=== PATIENT | male | born 1945 | race Caucasian/White ===

== ENCOUNTER 2017-11-09 10:30 | Outpatient (CLI) | payer MEDICARE, OTHER ==
[~2017-11-09] VITALS: Ht 177.8 cm; Wt 104.3 kg
[~2017-11-09 10:30] MED LIST: AMLO10TA2 PO; ASPI-586 PO; BNZ40T PO; CYAN250014 PO; DOXA4TAB2 PO; FERR325T18 PO; GLIM1TAB PO; IRBE1TAB43 PO; LEVO75TA6 PO; LEVOTHYROXINE PO; METF1000 PO; METO-395 PO; MULT-974 PO; MULTIVITAMIN PO; NIAC500T24 PO; OMEG-160 PO; PIOG30TA26 PO; SIMV10TA3 PO
== END 2017-11-09 11:18 ==
LOC: PREOP 10:30
PROVIDERS: ATTEND Surgery
DX: Z01.818 Encounter for other preprocedural examination (principal); D50.9 Iron deficiency anemia, unspecified

== ENCOUNTER 2017-11-11 07:29 | Day surgery (SDC) | payer MEDICARE, OTHER ==
[~2017-11-11] VITALS: Ht 177.8 cm; Wt 104.3 kg
[2017-11-11 07:40] VITALS: BP 120/64
[2017-11-11] MEDS ORDERED: NS IV 500 ML 500 ML IV PRN (07:43)
[2017-11-11] MEDS ORDERED: NS IV 500 ML 500 ML ONE (07:52)
[2017-11-11] MEDS ORDERED: fentaNYL INJECTION 100 MCG/2 ML AMP ONE (08:47)
[2017-11-11] MEDS ORDERED: MIDAZOLAM 2 MG/2 ML (VERSED) VIAL ONE ×3 (08:47)
[2017-11-11] MEDS: MIDAZOLAM 2 MG/2 ML (VERSED) VIAL IVP PRN ×3 (08:55→09:02)
[2017-11-11] MEDS: fentaNYL INJECTION 100 MCG/2 ML AMP IVP PRN ×2 (08:56→08:59)
--- NOTE | 2017-11-11 09:19 | History & Physicial ---
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 Date of Admission 11/11/17 Date Seen by Provider: Nov 11, 2017 Time Seen by Provider: 08:12 I consulted on this patient on 11/11/17 09:17 Attending Physician Radha Sadler MD Admitting Physician Macy Sheldon DO Consult Allergies and Home Medications Allergies Coded Allergies: Penicillins (Verified Allergy, Unknown, HIVES, 11/09/17) Home Medications Amlodipine Besylate 10 Mg Tablet, 10 MG PO DAILY, (Reported) Cyanocobalamin (Vitamin B-12) 2,500 Mcg Tab.chew, 2,500 MCG PO DAILY, (Reported) Doxazosin Mesylate 4 Mg Tablet, 4 MG PO DAILY, (Reported) Ferrous Sulfate 325 Mg Tablet, 325 MG PO DAILY, (Reported) Glimepiride 1 Mg Tablet, 1 MG PO DAILY, (Reported) Irbesartan/Hydrochlorothiazide 1 Each Tablet, 1 EACH PO HS, (Reported) Levothyroxine Sodium 75 Mcg Tablet, 75 MCG PO HS, (Reported) Metformin HCl 1,000 Mg Tablet, 1,000 MG PO BID, (Reported) Metoprolol Succinate 100 Mg Tab.er.24h, 100 MG PO DAILY, (Reported) Multivitamin 1 Each Tablet, 1 EACH PO DAILY, (Reported) Niacinamide 500 Mg Tablet, 1,000 MG PO DAILY, (Reported) TAKE 2 (500MG) TABS [place]-3/Dha/Epa/Fish Oil 1 Each Capsule, 1 EACH PO DAILY, (Reported) Simvastatin 10 Mg Tablet, 10 MG PO DAILY, (Reported) Patient Home Medication List Home Medication List Reviewed: Yes Past Wgzhmsg-Kqxukr-Aytinc Hx Patient Social History Marrital Status: Employed/Student: retired Alcohol Use: Regular Use Number of Drinks Today: AA Alcohol Beverage of Choice: Beer Recreational Drug Use: No Smoking Status: Former Smoker Former Smoker, Quit: Nov 09, 1996 Recent Foreign Travel: No Contact w/other who traveled: No Recent Hopitalizations: No Recent Infectious Disease Expo: No Immunizations Up To Date Date of Pneumonia Vaccine: Aug 13, 2012 Date of Influenza Vaccine: Apr 29, 2017 Seasonal Allergies Seasonal Allergies: Yes Cardiovascular Hypertension Genitourinary Prostate Problems Cancer Prostate Type of Treatment: Radiation Constitutional: no symptoms reported EENTM: no symptoms reported Respiratory: no symptoms reported Cardiovascular: no symptoms reported Gastrointestinal: no symptoms reported Genitourinary: no symptoms reported Musculoskeletal: no symptoms reported Skin: no symptoms reported Psychiatric/Neurological: No Symptoms Reported Physical Exam Vital Signs Vital Signs - First Documented 11/11/17 07:40 Temp 98.7 Pulse 75 Resp 20 B/P (MAP) 120/64 (82) Pulse Ox 95 O2 Delivery Room Air Capillary Refill : General Appearance: No Apparent Distress Neck: Normal Inspection Respiratory: Lungs Clear Cardiovascular: Regular Rate, Rhythm Gastrointestinal: Soft Rectal: Deferred Neurologic/Psychiatric: Alert, Oriented x3 Skin: Warm/Dry Assessment/Plan Assessment and Plan gentleman with ongoing I and deficiency anemia. 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 For colonoscopy and possible cauterization of the lesion Admission Diagnosis Admission Status: Other (Outpt Proc) RADHA SADLER MD Nov 11, 2017 9:19 am
--- NOTE | 2017-11-11 09:20 | Conscious Sedation/ASA ---
Conscious Sedation Pre-Proced Time Reviewed: 08:15 ASA Class: 2 Airway Mallampati Classification: ([place] appropriate class) I. II. III, IV Lungs Heart ASA score ASA 1: a normal healthy patient ASA 2: a patient with a mild systemic disease (mid diabetes, controlled hypertension, obesity ASA 3: a patient with a severe systemic disease that limits activity (angina , COPD, prior Myocardial infarction) ASA 4: a patient with an incapacitating disease that is a constant threat to life (CHF, renal failure) ASA 5: a moribund patient not expected to survive 24 hrs. (ruptured aneurysm) ASA 6: a declared brain patient whose organs are being harvested. For emergent operations, add the letter E after the classification Grade 2 Sedation Plan: Discussed options with patient/fam Note The patient is an appropriate candidate to undergo the planned procedure, sedation, and anesthesia. The patient immediately re-assessed prior to indication. RADHA NO MD Nov 11, 2017 9:20 am
--- NOTE | 2017-11-11 09:25 | Endo Procedure Record ---
Endo Procedure Report Date of Procedure Last Colonoscopy: Yes (2014?) Nov 11, 2017 Surgeon (s) RADHA NO MD Post Procedure/Op Diagnosis Very few sigmoid diverticula 2 mm AV malformation at the ileocecal junction Procedure Performed Colonoscopy to cecum Cauterization of AV malformation at the ileocecal junction Description of Procedure Anesthesia Type: Conscious Sedation Specimen(s) collected/removed none Description of the Procedure Indication for the procedure: This gentleman continues to have iron deficiency anemia. Capsule endoscopy was negative for any contributing lesions in the small bowel. 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 He returned for further colonoscopy and possible cauterization of the AV malformation. The inherent risk of iatrogenic perforation associated with this procedure was discussed explicitly. Informed consent was obtained. Description of the procedure: She was placed in left lateral decubitus position and his vital signs were monitored. Conscious sedation was achieved using Versed and fentanyl. Digital rectal examination was unremarkable. The colonoscope was then introduced into the rectum and advanced to the cecum The scope was then withdrawn slowly and the mucosa examined in a systematic fashion. Findings: 1. Sigmoid diverticulosis 2. 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 It was cauterized carefully with hot biopsy forceps at the lowest diathermy settings. He tolerated the procedure well and was taken back to the nursing area in a stable condition. Impression: Iron deficiency anemia. 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 Endoscopic cauterization completed. Copies To: KARLEE COCHRAN XAVIER M MD Nov 11, 2017 9:25 am
--- NOTE | 2017-11-11 09:28 | Discharge Inst-Simple/Standard ---
Discharge Inst-Standard Discharge Medications New, Converted or Re-Newed RX: Other Patient Instructions/Follow Up Plan of Care/Instructions/FU: Follow-up when necessary Activity as Tolerated: Yes Discharge Diet: No Restrictions, ADA Diet RADHA NO MD Nov 11, 2017 9:28 am
[2017-11-11 09:30] VITALS: BP 128/69
[2017-11-11 10:00] VITALS: BP 134/65
[2017-11-11 10:06] VITALS: BP 134/65
== END 2017-11-11 10:12 | disposition home or self-care (01) ==
LOC: ENDO 07:29
PROVIDERS: ATTEND Surgery
DX: K55.20 Angiodysplasia of colon without hemorrhage (principal); K57.30 Diverticulosis of large intestine without perforation or abscess without bleeding; D50.9 Iron deficiency anemia, unspecified; I10 Essential (primary) hypertension; Z87.891 Personal history of nicotine dependence; Z79.84 Long term (current) use of oral hypoglycemic drugs; Z79.899 Other long term (current) drug therapy
CPT/HCPCS: 82962

== ENCOUNTER → 2018-02-11 | Outpatient (CLI) | payer MEDICARE, OTHER ==
[~2018-02-11] MED LIST changes: +BENA40TA5 PO; -BNZ40T PO; -METF1000 PO; +METF10002 PO; -PIOG30TA26 PO; +PIOG30TA71 PO
--- NOTE | 2018-02-11 09:53 | Diagnostic Imaging Report ---
PROCEDURE: US Renal Bilateral. TECHNIQUE: Multiple real-time grayscale images were obtained over the kidneys in various projections bilaterally. INDICATION: Renal insufficiency. FINDINGS: Right kidney measures 11.1 x 4.7 x 5.1 cm and the left kidney measures 13.3 x 6.5 x 4.8 cm. Cortical thickness and echogenicity is normal bilaterally. There is moderate hydronephrosis bilaterally. Bladder does demonstrate bilateral ureteral jets. IMPRESSION: Moderate bilateral hydronephrosis. Dictated by: Dictated on workstation # [id number]
== END ==
LOC: RAD 08:52
PROVIDERS: ATTEND Family Medicine
DX: N13.30 Unspecified hydronephrosis (principal)
CPT/HCPCS: 76770

== ENCOUNTER → 2018-02-18 | Outpatient (CLI) | payer MEDICARE, OTHER ==
--- NOTE | 2018-02-18 10:11 | Diagnostic Imaging Report ---
PROCEDURE: CT abdomen and pelvis without contrast. TECHNIQUE: Multiple contiguous axial images were obtained through the abdomen and pelvis without the use of intravenous contrast. INDICATION: Bilateral hydronephrosis. COMPARISON: Correlation is limited to a pelvic CT performed on 02/08/2007. The indication for that study was prostate cancer and treatment planning. FINDINGS: There are severe degrees of bilateral relatively symmetric hydroureteronephrosis without opaque urinary tract stone disease. The ureters are dilated throughout their length to the level of the ureterovesical junctions. There are some trabeculations and thickening of the friedman of the urinary bladder with fundal diverticuli as well as a diverticulum at its medial base medial to the right trigone. The prostate is partially calcified, heterogeneous in its density, and decreased in volume from the previous study. It no longer reveals substantial impingement upon the bladder base. An exophytic low-density nodule posterior left laterally off the lateral prostatic lobe measures 1.8 cm. No periaortic lymphadenopathy. No mesenteric mass. The liver, gallbladder, spleen, adrenals, and pancreas are unremarkable. The atherosclerotic aortoiliac vessels are nonaneurysmal. There is a normal appendix. There is no suspicious lytic or sclerotic bone disease. A few benign calcified granulomata in the lung bases are noted. IMPRESSION: 1. There is moderate to severe bilateral hydroureteronephrosis without urinoma or opaque stone. No discrete soft tissue mass. The bladder is mildly thickened diffusely with multiple diverticuli and trabeculations on a chronic basis. No opaque stone disease. Reduction in prostamegaly; however, it is more heterogeneous than on the prior exam and shows an exophytic nodular component posterior left laterally. There is a right-sided bladder diverticulum versus right-sided periprostatic cystic nodule noted as well. 2. No abdominal/pelvic lymphadenopathy. No suspicious osseous lesion. Dictated by: Dictated on workstation # [id number]
== END ==
LOC: RAD 09:08
PROVIDERS: ATTEND Family Medicine
DX: N13.30 Unspecified hydronephrosis (principal); N32.3 Diverticulum of bladder; Z85.46 Personal history of malignant neoplasm of prostate
CPT/HCPCS: 74176

== ENCOUNTER → 2018-06-28 | Outpatient (CLI) | payer MEDICARE, OTHER ==
[~2018-06-28] MED LIST changes: -AMLO10TA2 PO; +AMLO10TA6 PO; +METF-399 PO; -METF10002 PO
--- NOTE | 2018-06-28 09:45 | Diagnostic Imaging Report ---
CLINICAL INDICATION: Patient carotid arthrosclerotic disease. COMPARISON: Ultrasound of the carotid arteries dated 09/24/2014. EXAM: Real-time carotid Doppler duplex imaging is performed bilaterally. Peak systolic velocity, ICA/CCA peak systolic ratio, spectral analysis, and vascular morphology are studied. FINDINGS: ARTERY VELOCITY Right Left CCA 1.19 m/s 1.36 m/s ICA 0.86 m/s 0.90 m/s ECA 1.08 m/s 1.32 m/s ICA/CCA 0.7 0.7 VERT.ART Antegrade Antegrade There is slight progression of atherosclerotic disease involving the bilateral carotid arteries with no significant stenosis seen. There is irregular heartbeat noted. Although there are slightly elevated velocities involving the left CCA and left ECA regions, there is no significant grayscale stenosis in the regions. IMPRESSION: 1: There is slight progression of mild bilateral carotid artery atherosclerotic disease with no grayscale or Doppler evidence of significant vascular stenosis. 2: Although there are slightly elevated velocities involving the left CCA and left ECA regions, there is no significant grayscale stenosis in the regions. 3: Irregular heartbeat is noted. Dictated by: Dictated on workstation # [id number]
== END ==
LOC: RAD 08:53
PROVIDERS: ATTEND Family Medicine
DX: I65.23 Occlusion and stenosis of bilateral carotid arteries (principal); I49.9 Cardiac arrhythmia, unspecified
CPT/HCPCS: 93880

== ENCOUNTER → 2018-09-23 | Outpatient (CLI) | payer MEDICARE, OTHER ==
[~2018-09-23] MED LIST changes: -AMLO10TA6 PO; +AMLO10TA7 PO
--- NOTE | 2018-09-23 12:32 | Diagnostic Imaging Report ---
PROCEDURE: US Renal Bilateral. TECHNIQUE: Multiple real-time grayscale images were obtained over the kidneys in various projections bilaterally. INDICATION: Incontinence and hydronephrosis. Right kidney measures 9.5 x 4.5 x 4.9 cm and the left kidney measures 13.7 x 8.0 x 4.5 cm. Kidneys do show a lobulated contour. The cortical thickness and echogenicity appears normal. There does appear to be hydronephrosis bilaterally. No calculi are seen. Evaluation of the urinary bladder does show prevoid volume of 98 mL. Post void volume is 2 mL. There is generalized bladder wall thickening. No discrete mass is seen. IMPRESSION: 1. Moderate bilateral hydronephrosis without evidence of calculi. 2. Diffuse bladder wall thickening. Dictated by: Dictated on workstation # [id number]
== END ==
LOC: RAD 09:08
PROVIDERS: ATTEND Specialist
DX: N13.30 Unspecified hydronephrosis (principal); N39.490 Overflow incontinence; N32.89 Other specified disorders of bladder; Z85.46 Personal history of malignant neoplasm of prostate
CPT/HCPCS: 76770; 82570

== ENCOUNTER → 2018-10-26 | Outpatient (RCR) | payer MEDICARE, OTHER | END | disposition home or self-care (01) | LOC: CR3 09-26 09:00 | PROVIDERS: ATTEND Family Medicine | DX: Z29.8 Encounter for other specified prophylactic measures (principal) ==

== ENCOUNTER 2018-11-25 09:08 | Outpatient (RCR) | payer MEDICARE, OTHER | END 2018-11-30 | disposition home or self-care (01) | LOC: CR3 09:08 | PROVIDERS: ATTEND Family Medicine | DX: Z29.8 Encounter for other specified prophylactic measures (principal) ==

== ENCOUNTER 2019-01-27 18:36 | Inpatient (IN) | payer MEDICARE, OTHER | END 2019-01-30 14:27 | disposition home or self-care (01) | LOC: 4TH 01-28 10:30 → ER 18:36 → ICU 21:35 ==

== ENCOUNTER 2019-01-31 15:47 | Observation (INO) | payer MEDICARE, OTHER ==
[~2019-01-31] VITALS: Ht 177.8 cm; Wt 95.9 kg
[2019-01-31] VITALS (8 sets, daily range): BP systolic 141–173; BP diastolic 83–119
[~2019-01-31 15:47] MED LIST changes: +ACET-93 PO; +ASPI325T32 PO; +BISA10SU58 RC; +C,E,1CAP PO; +NITR100C; +NITR100C PO; +NITR100C10 PO; +PANT40TA2; +PANT40TA3 PO; +POLY119P4 PO
--- NOTE | 2019-01-31 15:55 | NUR ---
UNABLE TO TEST VISUAL DUMONT ,LIMB ATAXIA AND SENSORY BECAUSE PATIENT DOSENT UNDERSTAND COMMAND.
--- OUTSIDE RECORDS SUMMARY | 2019-01-31 15:58 | XMS REPORT | Continuity of Care Document ---
Author Organization Unknown Address Unknown Allergies Active Description Code Type Severity Reaction Onset Reported/Identified Relationship to Patient Clinical Status Yes PENICILLINS MODERATE MODERATE Yes PENICILLINS MODERATE OTHER Yes pcn pcn Unknown N/A 05/13/2015 Yes pcn pcn Unknown HIVES 06/03/2015 Yes Penicillins [id number] Drug Allergy Unknown HIVES 01/27/2019 Medications Medication Packaging Start Date Stop Date Route Dosage Sig ACETAMINOPHEN ORAL TABLET 325mg(Tylenol) MG 11/27/2018 11/27/2018 PRN ONCE NORMAL SALINE 1000CC IV BAG INJ 0.9 % (NS 1000CC IV BAG) ml 11/27/2018 11/27/2018 ONCE&1546 ACETAMINOPHEN ORAL TABLET 325mg(Tylenol) MG 11/27/2018 11/27/2018 PRN ONCE POTASSIUM CHLORIDE TAB 20 MEQ (K-DUR) MEQ 11/27/2018 11/27/2018 ONCE&1601 ACETAMINOPHEN ORAL TABLET 325mg(Tylenol) MG 11/27/2018 12/27/2018 PRN EVERY 6 Hour NORMAL SALINE 1000CC IV BAG INJ 0.9 % (NS 1000CC IV BAG) ml 11/27/2018 12/12/2018 CONTINUOUSEVERY 0 Hour CEFTRIAXONE PREMIX IV BAG IV 1 GM/50CC (ROCEPHIN PREMIX IV BAG) GM 11/27/2018 12/03/2018 Daily&1645 ONDANSETRON VIAL INJ 4 MG/2CC (ZOFRAN 2CC VIAL) MG 11/27/2018 12/04/2018 PRN Q6H SIMVASTATIN TAB 10 MG (ZOCOR) MG 11/27/2018 12/03/2018 QPM&2000 METFORMIN TAB 500 MG (GLUCOPHAGE) MG 11/27/2018 12/03/2018 QHS&2100 MACROBID CAP 100 MG (NITROFURANTOIN-BID CAP) MG 11/28/2018 12/04/2018 BID&0800,2000 NORMAL SALINE 1000CC IV BAG INJ 0.9 % (NS 1000CC IV BAG) ml 11/28/2018 12/13/2018 CONTINUOUSEVERY 0 Hour GLIMEPIRIDE TAB 2 MG (AMARYL) MG 11/28/2018 12/04/2018 Daily&0900 ASPIRIN ENTERIC COATED TAB 81 MG (BABY ASPIRIN EC) MG 11/28/2018 12/04/2018 Daily&0900 FISH OIL CAP CAP 1000 MG (OMEGA 3) MG 11/28/2018 12/04/2018 Daily&0900 LEVOTHYROXINE TAB 75 MCG (SYNTHROID) MCG 11/28/2018 12/04/2018 Daily&0900 CEFTRIAXONE PREMIX IV BAG IV 1 GM/50CC (ROCEPHIN PREMIX IV BAG) GM 11/28/2018 12/04/2018 Daily&0900 NORMAL SALINE 1000CC IV BAG INJ 0.9 % (NS 1000CC IV BAG) ml 11/28/2018 12/13/2018 CONTINUOUSEVERY 0 Hour Meropenem-0.9% sodium chloride IV piggyback 500mg MG 11/28/2018 12/08/2018 Q12H&0600,1800 ACETAMINOPHEN ORAL TABLET 325mg(Tylenol) MG 11/28/2018 12/28/2018 PRN Q4H Normal Saline 1000cc W/KCl 20mEq ml 11/29/2018 12/06/2018 CONTINUOUSEVERY 0 Hour CEFEPIME PREMIX BAG IV 1 GM/50CC (MAXIPIME PREMIX BAG) GM 11/29/2018 12/05/2018 Q12H&0800,2000 IRON SUCROSE INJECTION INJ 20 MG/CC (VENOFER) MG 11/29/2018 12/07/2018 Q48H&0900 ONDANSETRON VIAL INJ 4 MG/2CC (ZOFRAN 2CC VIAL) MG 11/30/2018 12/30/2018 PRN Q6H Normal Saline 1000cc W/KCl 20mEq ml 11/30/2018 12/30/2018 CONTINUOUSEVERY 0 Hour ACETAMINOPHEN ORAL TABLET 325mg(Tylenol) MG 11/30/2018 12/30/2018 PRN Q4H SIMVASTATIN TAB 10 MG (ZOCOR) MG 11/30/2018 12/29/2018 QPM&2000 CEFEPIME PREMIX BAG IV 1 GM/50CC (MAXIPIME PREMIX BAG) GM 11/30/2018 12/05/2018 Q12H&0800,2000 ASPIRIN ENTERIC COATED TAB 81 MG (BABY ASPIRIN EC) MG 12/01/2018 12/30/2018 Daily&0900 FISH OIL CAP CAP 1000 MG (OMEGA 3) MG 12/01/2018 12/30/2018 Daily&0900 LEVOTHYROXINE TAB 75 MCG (SYNTHROID) MCG 12/01/2018 12/30/2018 Daily&0900 IRON SUCROSE INJECTION INJ 20 MG/CC (VENOFER) MG 12/01/2018 12/07/2018 Q48H&0900 PANTOPRAZOLE TAB 40 MG (PROTONIX) MG 12/02/2018 12/08/2018 Daily&1999 POTASSIUM CHLORIDE TAB 20 MEQ (K-DUR) MEQ 12/04/2018 12/04/2018 ONCE&1016 Problems Date Dx Coded Attending Type Code Diagnosis Diagnosed By 10/26/2014 Ot 433.10 10/26/2014 Ot 433.30 12/21/2014 Ot 433.10 12/21/2014 Ot 433.30 12/21/2014 Ot 433.10 12/21/2014 Ot 433.30 12/31/2014 Ot 433.10 12/31/2014 Ot 433.30 05/06/2015 Ot 433.10 05/06/2015 Ot 433.30 05/13/2015 ONEAL ROSALES, RADHA العلي Ot D50.9 IRON DEFICIENCY ANEMIA, UNSPECIFIED 05/13/2015 RADHA NO MD Ot K57.30 DVRTCLOS OF LG INT W/O PERFORATION OR AB 05/13/2015 RADHA NO MD Ot 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 05/13/2015 RADHA NO MD Ot R19.5 OTHER FECAL ABNORMALITIES 06/03/2015 RADHA NO MD Ot D50.9 IRON DEFICIENCY ANEMIA, UNSPECIFIED 06/03/2015 RADHA NO MD Ot K44.9 DIAPHRAGMATIC HERNIA WITHOUT OBSTRUCTION 11/08/2015 Ot 433.10 11/08/2015 Ot 433.30 11/08/2015 Ot D64.9 11/08/2015 Ot R19.5 11/08/2015 Ot Z01.818 11/08/2015 RADHA NO MD Ot D64.9 11/08/2015 RADHA NO MD Ot Z01.818 11/08/2017 Ot 433.10 CAROTID ARTERY OCCLUSION W O CEREBRAL IN 11/08/2017 Ot 433.30 MULT BILTRAL ARTERY OCCLUSION WO CEREBRA 11/08/2017 Ot D64.9 ANEMIA, UNSPECIFIED 11/08/2017 Ot R19.5 OTHER FECAL ABNORMALITIES 11/08/2017 Ot Z01.818 ENCOUNTER FOR OTHER PREPROCEDURAL EXAMIN 11/08/2017 ONEAL ROSALES, RADHA العلي Ot D64.9 ANEMIA, UNSPECIFIED 11/08/2017 ONEAL ROSALES, RADHA العلي Ot Z01.818 ENCOUNTER FOR OTHER PREPROCEDURAL EXAMIN 11/09/2017 ONEAL ROSALES, RADHA العلي Ot D50.9 IRON DEFICIENCY ANEMIA, UNSPECIFIED 11/09/2017 ONEAL ROSALES, RADHA العلي Ot Z01.818 ENCOUNTER FOR OTHER PREPROCEDURAL EXAMIN 11/10/2017 ONEAL ROSALES, RADHA العلي Ot D50.9 IRON DEFICIENCY ANEMIA, UNSPECIFIED 11/10/2017 ONEAL ROSALES, RADHA العلي Ot Z01.818 ENCOUNTER FOR OTHER PREPROCEDURAL EXAMIN 11/11/2017 Ot 433.10 CAROTID ARTERY OCCLUSION W O CEREBRAL IN 11/11/2017 Ot 433.30 MULT BILTRAL ARTERY OCCLUSION WO CEREBRA 11/11/2017 Ot D64.9 ANEMIA, UNSPECIFIED 11/11/2017 Ot R19.5 OTHER FECAL ABNORMALITIES 11/11/2017 Ot Z01.818 ENCOUNTER FOR OTHER PREPROCEDURAL EXAMIN 11/11/2017 ONEAL ROSALES, RADHA العلي Ot D64.9 ANEMIA, UNSPECIFIED 11/11/2017 ONEAL ROSALES, RADHA العلي Ot Z01.818 ENCOUNTER FOR OTHER PREPROCEDURAL EXAMIN 11/11/2017 ONEAL ROSALES, RADHA العلي Ot D50.9 IRON DEFICIENCY ANEMIA, UNSPECIFIED 11/11/2017 ONEAL ROSALES, RADHA العلي Ot I10 ESSENTIAL (PRIMARY) HYPERTENSION 11/11/2017 ONEAL ROSALSE, RADHA العلي Ot K55.20 ANGIODYSPLASIA OF COLON WITHOUT HEMORRHA 11/11/2017 ONEAL ROSALES, RADHA العلي Ot K57.30 DVRTCLOS OF LG INT W/O PERFORATION OR AB 11/11/2017 ONEAL ROSALES, RADHA العلي Ot Z79.84 FDC (CURRENT) USE OF ORAL HYPOGLYC 11/11/2017 ONEAL ROSALES, RADHA العلي Ot Z79.899 OTHER [facility] (CURRENT) DRUG THERAPY 11/11/2017 ONEAL ROSALES, RADHA العلي Ot Z87.891 PERSONAL HISTORY OF NICOTINE DEPENDENCE 11/12/2017 ONEAL ROSALES, RADHA العلي Ot D50.9 IRON DEFICIENCY ANEMIA, UNSPECIFIED 11/12/2017 ONEAL ROSALES, RADHA العلي Ot I10 ESSENTIAL (PRIMARY) HYPERTENSION 11/12/2017 ONEAL ROSALES, RADHA العلي Ot K55.20 ANGIODYSPLASIA OF COLON WITHOUT HEMORRHA 11/12/2017 ONEAL ROSALES, RADHA العلي Ot K57.30 DVRTCLOS OF LG INT W/O PERFORATION OR AB 11/12/2017 ONEAL ROSALES, RADHA العلي Ot 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 11/12/2017 ONEAL ROSALES, RADHA العلي Ot Z79.899 OTHER INFANT ROOM TEACHER (CURRENT) DRUG THERAPY 11/12/2017 ONEAL ROSALES, RADHA العلي Ot Z87.891 PERSONAL HISTORY OF NICOTINE DEPENDENCE 02/11/2018 Ot 433.10 CAROTID ARTERY OCCLUSION W O CEREBRAL IN 02/11/2018 Ot 433.30 MULT BILTRAL ARTERY OCCLUSION WO CEREBRA 02/11/2018 Ot D64.9 ANEMIA, UNSPECIFIED 02/11/2018 Ot R19.5 OTHER FECAL ABNORMALITIES 02/11/2018 Ot Z01.818 ENCOUNTER FOR OTHER PREPROCEDURAL EXAMIN 02/11/2018 ONEAL ROSALES, RADHA العلي Ot D64.9 ANEMIA, UNSPECIFIED 02/11/2018 ONEAL ROSALES, RADHA العلي Ot Z01.818 ENCOUNTER FOR OTHER PREPROCEDURAL EXAMIN 02/14/2018 ORENDER DO, MACY S Ot N13.30 UNSPECIFIED HYDRONEPHROSIS 02/21/2018 ORENDER DO, MACY S Ot N13.30 UNSPECIFIED HYDRONEPHROSIS 02/21/2018 ORENDER DO, MACY S Ot N32.3 DIVERTICULUM OF BLADDER 02/21/2018 ORENDER DO, MACY S Ot Z85.46 PERSONAL HISTORY OF MALIGNANT NEOPLASM O 06/14/2018 Ot 433.10 CAROTID ARTERY OCCLUSION W O CEREBRAL IN 06/14/2018 Ot 433.30 MULT BILTRAL ARTERY OCCLUSION WO CEREBRA 06/14/2018 Ot D64.9 ANEMIA, UNSPECIFIED 06/14/2018 Ot R19.5 OTHER FECAL ABNORMALITIES 06/14/2018 Ot Z01.818 ENCOUNTER FOR OTHER PREPROCEDURAL EXAMIN 06/14/2018 ARDHA NO MD Ot D64.9 ANEMIA, UNSPECIFIED 06/14/2018 ONEAL ROSALES, RADHA العلي Ot Z01.818 ENCOUNTER FOR OTHER PREPROCEDURAL EXAMIN 06/14/2018 ERICNDER DO, MACY S Ot N13.30 UNSPECIFIED HYDRONEPHROSIS 06/14/2018 ORENDER DO, MACY S Ot N13.30 UNSPECIFIED HYDRONEPHROSIS 06/14/2018 ERICNDER DO, MACY S Ot N32.3 DIVERTICULUM OF BLADDER 06/14/2018 ERICNDER DO, MACY S Ot Z85.46 PERSONAL HISTORY OF MALIGNANT NEOPLASM O 06/14/2018 ERICNDER DO, MACY S Ot I65.23 OCCLUSION AND STENOSIS OF BILATERAL [place] 06/27/2018 Ot 433.10 CAROTID ARTERY OCCLUSION W O CEREBRAL IN 06/27/2018 Ot 433.30 MULT BILTRAL ARTERY OCCLUSION WO CEREBRA 06/27/2018 Ot D64.9 ANEMIA, UNSPECIFIED 06/27/2018 Ot R19.5 OTHER FECAL ABNORMALITIES 06/27/2018 Ot Z01.818 ENCOUNTER FOR OTHER PREPROCEDURAL EXAMIN 06/27/2018 ONEAL ROSALES, RADHA العلي Ot D64.9 ANEMIA, UNSPECIFIED 06/27/2018 ONEAL ROSALES, RADHA العلي Ot Z01.818 ENCOUNTER FOR OTHER PREPROCEDURAL EXAMIN 06/27/2018 ERICNDER DO, MACY S Ot N13.30 UNSPECIFIED HYDRONEPHROSIS 06/27/2018 ERICNDER DO, MACY S Ot N13.30 UNSPECIFIED HYDRONEPHROSIS 06/27/2018 ERICNDER DO, MACY S Ot N32.3 DIVERTICULUM OF BLADDER 06/27/2018 ERICNDER DO, MACY S Ot Z85.46 PERSONAL HISTORY OF MALIGNANT NEOPLASM O 06/27/2018 ERICNDER DO, MACY S Ot I65.23 OCCLUSION AND STENOSIS OF BILATERAL [place] 06/27/2018 Ot 433.10 CAROTID ARTERY OCCLUSION W O CEREBRAL IN 06/27/2018 Ot 433.30 MULT BILTRAL ARTERY OCCLUSION WO CEREBRA 06/27/2018 Ot D64.9 ANEMIA, UNSPECIFIED 06/27/2018 Ot R19.5 OTHER FECAL ABNORMALITIES 06/27/2018 Ot Z01.818 ENCOUNTER FOR OTHER PREPROCEDURAL EXAMIN 06/27/2018 ONEAL ROSALES, RADHA العلي Ot D64.9 ANEMIA, UNSPECIFIED 06/27/2018 ONEAL ROSALES, RADHA العلي Ot Z01.818 ENCOUNTER FOR OTHER PREPROCEDURAL EXAMIN 06/27/2018 ERICNDER DO, MACY S Ot N13.30 UNSPECIFIED HYDRONEPHROSIS 06/27/2018 ORENDER DO, MACY S Ot N13.30 UNSPECIFIED HYDRONEPHROSIS 06/27/2018 ERICNDER DO, MACY S Ot N32.3 DIVERTICULUM OF BLADDER 06/27/2018 ORENDER DO, MACY S Ot Z85.46 PERSONAL HISTORY OF MALIGNANT NEOPLASM O 06/27/2018 ORENDER DO, MACY S Ot I65.23 OCCLUSION AND STENOSIS OF BILATERAL [place] 06/27/2018 ORENDER DO, MACY S Ot I65.23 OCCLUSION AND STENOSIS OF BILATERAL [place] 06/28/2018 Ot 433.10 CAROTID ARTERY OCCLUSION W O CEREBRAL IN 06/28/2018 Ot 433.30 MULT BILTRAL ARTERY OCCLUSION WO CEREBRA 06/28/2018 Ot D64.9 ANEMIA, UNSPECIFIED 06/28/2018 Ot R19.5 OTHER FECAL ABNORMALITIES 06/28/2018 Ot Z01.818 ENCOUNTER FOR OTHER PREPROCEDURAL EXAMIN 06/28/2018 ONEAL ROSALES, RADHA العلي Ot D64.9 ANEMIA, UNSPECIFIED 06/28/2018 ONEAL ROSALES, RADHA العلي Ot Z01.818 ENCOUNTER FOR OTHER PREPROCEDURAL EXAMIN 06/28/2018 ERICNDER DO, MACY S Ot N13.30 UNSPECIFIED HYDRONEPHROSIS 06/28/2018 ERICNDER DO, MACY S Ot N13.30 UNSPECIFIED HYDRONEPHROSIS 06/28/2018 ERICNDER DO, MACY S Ot N32.3 DIVERTICULUM OF BLADDER 06/28/2018 ERICNDER DO, MACY S Ot Z85.46 PERSONAL HISTORY OF MALIGNANT NEOPLASM O 06/28/2018 ERICNDER DO, MACY S Ot I65.23 OCCLUSION AND STENOSIS OF BILATERAL [place] 06/28/2018 Ot 433.10 CAROTID ARTERY OCCLUSION W O CEREBRAL IN 06/28/2018 Ot 433.30 MULT BILTRAL ARTERY OCCLUSION WO CEREBRA 06/28/2018 Ot D64.9 ANEMIA, UNSPECIFIED 06/28/2018 Ot R19.5 OTHER FECAL ABNORMALITIES 06/28/2018 Ot Z01.818 ENCOUNTER FOR OTHER PREPROCEDURAL EXAMIN 06/28/2018 ONEAL ROSALES, RADHA العلي Ot D64.9 ANEMIA, UNSPECIFIED 06/28/2018 ONEAL ROSALES, RADHA العلي Ot Z01.818 ENCOUNTER FOR OTHER PREPROCEDURAL EXAMIN 06/28/2018 ORENDER DO, MACY S Ot N13.30 UNSPECIFIED HYDRONEPHROSIS 06/28/2018 ORENDER DO, MACY S Ot N13.30 UNSPECIFIED HYDRONEPHROSIS 06/28/2018 ORENDER DO, MACY S Ot N32.3 DIVERTICULUM OF BLADDER 06/28/2018 ORENDER DO, MACY S Ot Z85.46 PERSONAL HISTORY OF MALIGNANT NEOPLASM O 06/28/2018 ORENDER DO, MACY S Ot I65.23 OCCLUSION AND STENOSIS OF BILATERAL [place] 07/04/2018 ORENDER DO, MACY S Ot I49.9 CARDIAC ARRHYTHMIA, UNSPECIFIED 07/04/2018 ORENDER DO, MACY S Ot I65.23 OCCLUSION AND STENOSIS OF BILATERAL [place] 07/22/2018 ORENDER DO, MACY S Ot I49.9 CARDIAC ARRHYTHMIA, UNSPECIFIED 07/22/2018 ORENDER DO, MACY S Ot I65.23 OCCLUSION AND STENOSIS OF BILATERAL [place] 07/22/2018 Ot 433.10 CAROTID ARTERY OCCLUSION W O CEREBRAL IN 07/22/2018 Ot 433.30 MULT BILTRAL ARTERY OCCLUSION WO CEREBRA 07/22/2018 Ot D64.9 ANEMIA, UNSPECIFIED 07/22/2018 Ot R19.5 OTHER FECAL ABNORMALITIES 07/22/2018 Ot Z01.818 ENCOUNTER FOR OTHER PREPROCEDURAL EXAMIN 07/22/2018 ONEAL ROSALES, RADHA العلي Ot D64.9 ANEMIA, UNSPECIFIED 07/22/2018 ONEAL ROSALES, RADHA العلي Ot Z01.818 ENCOUNTER FOR OTHER PREPROCEDURAL EXAMIN 07/22/2018 ORENDER DO, MACY S Ot N13.30 UNSPECIFIED HYDRONEPHROSIS 07/22/2018 ORENDER DO, MACY S Ot N13.30 UNSPECIFIED HYDRONEPHROSIS 07/22/2018 ORENDER DO, MACY S Ot N32.3 DIVERTICULUM OF BLADDER 07/22/2018 ORENDER DO, MACY S Ot Z85.46 PERSONAL HISTORY OF MALIGNANT NEOPLASM O 07/22/2018 ORENDER DO, MACY S Ot I49.9 CARDIAC ARRHYTHMIA, UNSPECIFIED 07/22/2018 ORENDER DO, MACY S Ot I65.23 OCCLUSION AND STENOSIS OF BILATERAL [place] 07/28/2018 Ot 433.10 CAROTID ARTERY OCCLUSION W O CEREBRAL IN 07/28/2018 Ot 433.30 MULT BILTRAL ARTERY OCCLUSION WO CEREBRA 07/28/2018 Ot D64.9 ANEMIA, UNSPECIFIED 07/28/2018 Ot R19.5 OTHER FECAL ABNORMALITIES 07/28/2018 Ot Z01.818 ENCOUNTER FOR OTHER PREPROCEDURAL EXAMIN 07/28/2018 ONEAL ROSALES, RADHA العلي Ot D64.9 ANEMIA, UNSPECIFIED 07/28/2018 ONEAL ROSALES, RADHA العلي Ot Z01.818 ENCOUNTER FOR OTHER PREPROCEDURAL EXAMIN 07/28/2018 ORENDER DO, MACY S Ot N13.30 UNSPECIFIED HYDRONEPHROSIS 07/28/2018 ORENDER DO, MACY S Ot N13.30 UNSPECIFIED HYDRONEPHROSIS 07/28/2018 ORENDER DO, MACY S Ot N32.3 DIVERTICULUM OF BLADDER 07/28/2018 ERICNDER DO, MACY S Ot Z85.46 PERSONAL HISTORY OF MALIGNANT NEOPLASM O 07/28/2018 ERICNDER DO, MACY S Ot I49.9 CARDIAC ARRHYTHMIA, UNSPECIFIED 07/28/2018 ERICNDER DO, MACY S Ot I65.23 OCCLUSION AND STENOSIS OF BILATERAL [place] 09/12/2018 Ot 433.10 CAROTID ARTERY OCCLUSION W O CEREBRAL IN 09/12/2018 Ot 433.30 MULT BILTRAL ARTERY OCCLUSION WO CEREBRA 09/12/2018 Ot D64.9 ANEMIA, UNSPECIFIED 09/12/2018 Ot R19.5 OTHER FECAL ABNORMALITIES 09/12/2018 Ot Z01.818 ENCOUNTER FOR OTHER PREPROCEDURAL EXAMIN 09/12/2018 ONEAL ROSALES, RADHA العلي Ot D64.9 ANEMIA, UNSPECIFIED 09/12/2018 ONEAL ROSALES, RADHA العلي Ot Z01.818 ENCOUNTER FOR OTHER PREPROCEDURAL EXAMIN 09/12/2018 ORENDER DO, MACY S Ot N13.30 UNSPECIFIED HYDRONEPHROSIS 09/12/2018 ORENDER DO, MACY S Ot N13.30 UNSPECIFIED HYDRONEPHROSIS 09/12/2018 ORENDER DO, MACY S Ot N32.3 DIVERTICULUM OF BLADDER 09/12/2018 ORENDER DO, MACY S Ot Z85.46 PERSONAL HISTORY OF MALIGNANT NEOPLASM O 09/12/2018 ORENDER DO, MACY S Ot I49.9 CARDIAC ARRHYTHMIA, UNSPECIFIED 09/12/2018 ORENDER DO, MACY S Ot I65.23 OCCLUSION AND STENOSIS OF BILATERAL [place] 09/21/2018 Ot 433.10 CAROTID ARTERY OCCLUSION W O CEREBRAL IN 09/21/2018 Ot 433.30 MULT BILTRAL ARTERY OCCLUSION WO CEREBRA 09/21/2018 Ot D64.9 ANEMIA, UNSPECIFIED 09/21/2018 Ot R19.5 OTHER FECAL ABNORMALITIES 09/21/2018 Ot Z01.818 ENCOUNTER FOR OTHER PREPROCEDURAL EXAMIN 09/21/2018 ONEAL ROSALES, RADHA العلي Ot D64.9 ANEMIA, UNSPECIFIED 09/21/2018 ONEAL ROSALES, RADHA العلي Ot Z01.818 ENCOUNTER FOR OTHER PREPROCEDURAL EXAMIN 09/21/2018 ORENDER DO, MACY S Ot N13.30 UNSPECIFIED HYDRONEPHROSIS 09/21/2018 ORENDER DO, MACY S Ot N13.30 UNSPECIFIED HYDRONEPHROSIS 09/21/2018 ORENDER DO, MACY S Ot N32.3 DIVERTICULUM OF BLADDER 09/21/2018 ORENDER DO, MACY S Ot Z85.46 PERSONAL HISTORY OF MALIGNANT NEOPLASM O 09/21/2018 ORENDER DO, MACY S Ot I49.9 CARDIAC ARRHYTHMIA, UNSPECIFIED 09/21/2018 ORENDER DO, MACY S Ot I65.23 OCCLUSION AND STENOSIS OF BILATERAL [place] 09/23/2018 Ot 433.10 CAROTID ARTERY OCCLUSION W O CEREBRAL IN 09/23/2018 Ot 433.30 MULT BILTRAL ARTERY OCCLUSION WO CEREBRA 09/23/2018 Ot D64.9 ANEMIA, UNSPECIFIED 09/23/2018 Ot R19.5 OTHER FECAL ABNORMALITIES 09/23/2018 Ot Z01.818 ENCOUNTER FOR OTHER PREPROCEDURAL EXAMIN 09/23/2018 ONEAL ROSALES, RADHA العلي Ot D64.9 ANEMIA, UNSPECIFIED 09/23/2018 ONEAL ROSALES, RADHA العلي Ot Z01.818 ENCOUNTER FOR OTHER PREPROCEDURAL EXAMIN 09/23/2018 DIMAS AYALA, MACY S Ot N13.30 UNSPECIFIED HYDRONEPHROSIS 09/23/2018 ERICNDER DO, MACY S Ot N13.30 UNSPECIFIED HYDRONEPHROSIS 09/23/2018 ERICNDVERONICA AYALA, MACY S Ot N32.3 DIVERTICULUM OF BLADDER 09/23/2018 DIMAS AYALA, MACY S Ot Z85.46 PERSONAL HISTORY OF MALIGNANT NEOPLASM O 09/23/2018 DIMAS AYALA, MACY S Ot I49.9 CARDIAC ARRHYTHMIA, UNSPECIFIED 09/23/2018 DIMAS AYALA, MACY S Ot I65.23 OCCLUSION AND STENOSIS OF BILATERAL [place] 09/25/2018 Mounika TOMLIN MD Ot N13.30 UNSPECIFIED HYDRONEPHROSIS 09/25/2018 Mounika TOMLIN MD Ot N32.89 OTHER SPECIFIED DISORDERS OF BLADDER 09/25/2018 Mounika TOMLIN MD Ot N39.490 OVERFLOW INCONTINENCE 09/25/2018 Mounika TOMLIN MD Ot Z85.46 PERSONAL HISTORY OF MALIGNANT NEOPLASM O 10/17/2018 Mounika TOMLIN MD Ot N13.30 UNSPECIFIED HYDRONEPHROSIS 10/17/2018 Mounika TOMLIN MD Ot N32.89 OTHER SPECIFIED DISORDERS OF BLADDER 10/17/2018 Mounika TOMLIN MD Ot N39.490 OVERFLOW INCONTINENCE 10/17/2018 Mounika TOMLIN MD Ot Z85.46 PERSONAL HISTORY OF MALIGNANT NEOPLASM O 10/19/2018 Mounika TOMLIN MD Ot N13.30 UNSPECIFIED HYDRONEPHROSIS 10/19/2018 Mounika TOMLIN MD Ot N32.89 OTHER SPECIFIED DISORDERS OF BLADDER 10/19/2018 Mounika TOMLIN MD Ot N39.490 OVERFLOW INCONTINENCE 10/19/2018 Mounika TOMLIN MD Ot Z85.46 PERSONAL HISTORY OF MALIGNANT NEOPLASM O 10/21/2018 Ot 433.10 CAROTID ARTERY OCCLUSION W O CEREBRAL IN 10/21/2018 Ot 433.30 MULT BILTRAL ARTERY OCCLUSION WO CEREBRA 10/21/2018 Ot D64.9 ANEMIA, UNSPECIFIED 10/21/2018 Ot R19.5 OTHER FECAL ABNORMALITIES 10/21/2018 Ot Z01.818 ENCOUNTER FOR OTHER PREPROCEDURAL EXAMIN 10/21/2018 ONEAL ROSALES, RADHA العلي Ot D64.9 ANEMIA, UNSPECIFIED 10/21/2018 ONEAL ROSALES, RADHA العلي Ot Z01.818 ENCOUNTER FOR OTHER PREPROCEDURAL EXAMIN 10/21/2018 ORENDER DO, MACY S Ot N13.30 UNSPECIFIED HYDRONEPHROSIS 10/21/2018 ORENDER DO, MACY S Ot N13.30 UNSPECIFIED HYDRONEPHROSIS 10/21/2018 ORENDER DO, MACY S Ot N32.3 DIVERTICULUM OF BLADDER 10/21/2018 ORENDER DO, MACY S Ot Z85.46 PERSONAL HISTORY OF MALIGNANT NEOPLASM O 10/21/2018 ORENDER DO, MACY S Ot I49.9 CARDIAC ARRHYTHMIA, UNSPECIFIED 10/21/2018 ORENDER DO, MACY S Ot I65.23 OCCLUSION AND STENOSIS OF BILATERAL [place] 10/21/2018 Mounika TOMLIN MD Ot N13.30 UNSPECIFIED HYDRONEPHROSIS 10/21/2018 Mounika TOMLIN MD Ot N32.89 OTHER SPECIFIED DISORDERS OF BLADDER 10/21/2018 Mounika TOMLIN MD Ot N39.490 OVERFLOW INCONTINENCE 10/21/2018 Mounika TOMLIN MD Ot Z85.46 PERSONAL HISTORY OF MALIGNANT NEOPLASM O 10/26/2018 ORENDER DO, MACY S Ot Z29.8 ENCOUNTER FOR OTHER SPECIFIED PROPHYLACT 10/31/2018 Ot 433.10 CAROTID ARTERY OCCLUSION W O CEREBRAL IN 10/31/2018 Ot 433.30 MULT BILTRAL ARTERY OCCLUSION WO CEREBRA 10/31/2018 Ot D64.9 ANEMIA, UNSPECIFIED 10/31/2018 Ot R19.5 OTHER FECAL ABNORMALITIES 10/31/2018 Ot Z01.818 ENCOUNTER FOR OTHER PREPROCEDURAL EXAMIN 10/31/2018 ONEAL ROSALES, RADHA العلي Ot D64.9 ANEMIA, UNSPECIFIED 10/31/2018 ONEAL ROSALES, RADHA العلي Ot Z01.818 ENCOUNTER FOR OTHER PREPROCEDURAL EXAMIN 10/31/2018 ORENDER DO, MACY S Ot N13.30 UNSPECIFIED HYDRONEPHROSIS 10/31/2018 ORENDER DO, MACY S Ot N13.30 UNSPECIFIED HYDRONEPHROSIS 10/31/2018 ORENDER DO, MACY S Ot N32.3 DIVERTICULUM OF BLADDER 10/31/2018 ORENDER DO, MACY S Ot Z85.46 PERSONAL HISTORY OF MALIGNANT NEOPLASM O 10/31/2018 ORENDER DO, MACY S Ot I49.9 CARDIAC ARRHYTHMIA, UNSPECIFIED 10/31/2018 ORENDER DO, MACY S Ot I65.23 OCCLUSION AND STENOSIS OF BILATERAL [place] 10/31/2018 SADA ROSALES, Mounika CANTOR Ot N13.30 UNSPECIFIED HYDRONEPHROSIS 10/31/2018 SADA ROSALES, Mounika CANTOR Ot N32.89 OTHER SPECIFIED DISORDERS OF BLADDER 10/31/2018 SADA ROSALES, Mounika CANTOR Ot N39.490 OVERFLOW INCONTINENCE 10/31/2018 SADA ROSALES, Mounika CANTOR Ot Z85.46 PERSONAL HISTORY OF MALIGNANT NEOPLASM O 11/07/2018 Ot 433.10 CAROTID ARTERY OCCLUSION W O CEREBRAL IN 11/07/2018 Ot 433.30 MULT BILTRAL ARTERY OCCLUSION WO CEREBRA 11/07/2018 Ot D64.9 ANEMIA, UNSPECIFIED 11/07/2018 Ot R19.5 OTHER FECAL ABNORMALITIES 11/07/2018 Ot Z01.818 ENCOUNTER FOR OTHER PREPROCEDURAL EXAMIN 11/07/2018 ONEAL ROSALES, RADHA العلي Ot D64.9 ANEMIA, UNSPECIFIED 11/07/2018 ONEAL ROSALES, RADHA العلي Ot Z01.818 ENCOUNTER FOR OTHER PREPROCEDURAL EXAMIN 11/07/2018 ORENDER DO, MACY S Ot N13.30 UNSPECIFIED HYDRONEPHROSIS 11/07/2018 ORENDER DO, MACY S Ot N13.30 UNSPECIFIED HYDRONEPHROSIS 11/07/2018 ORENDER DO, MACY S Ot N32.3 DIVERTICULUM OF BLADDER 11/07/2018 ORENDER DO, MACY S Ot Z85.46 PERSONAL HISTORY OF MALIGNANT NEOPLASM O 11/07/2018 ORENDER DO, MACY S Ot I49.9 CARDIAC ARRHYTHMIA, UNSPECIFIED 11/07/2018 ORENDER DO, MACY S Ot I65.23 OCCLUSION AND STENOSIS OF BILATERAL [place] 11/07/2018 Mounika TOMLIN MD Ot N13.30 UNSPECIFIED HYDRONEPHROSIS 11/07/2018 SADA ROSALES, Mounika CANTOR Ot N32.89 OTHER SPECIFIED DISORDERS OF BLADDER 11/07/2018 SADA ROSALES, Mounika CANTOR Ot N39.490 OVERFLOW INCONTINENCE 11/07/2018 SADA ROSALES, Mounika CANTOR Ot Z85.46 PERSONAL HISTORY OF MALIGNANT NEOPLASM O 11/27/2018 Ayad, Harmony W 599.0 URINARY TRACT INFECTION, SITE NOT SPECIFIED 11/27/2018 Ayad, Harmony W N39.0 URINARY TRACT INFECTION, SITE NOT SPECIFIED 11/27/2018 Ayad, Harmony W 250.00 DIABETES MELLITUS WITHOUT MENTION OF COMPLICATION, TYPE II OR UNSPECIFIED TYPE, NOT STATED UNCONTROLLED 11/27/2018 Ayad, Harmony W 584.9 ACUTE KIDNEY FAILURE, UNSPECIFIED 11/27/2018 Ayad, Harmony W 599.0 URINARY TRACT INFECTION, SITE NOT SPECIFIED 11/27/2018 Ayad, Harmony W E11.9 TYPE 2 DIABETES MELLITUS WITHOUT COMPLICATIONS 11/27/2018 Ayad, Harmony W N17.9 ACUTE KIDNEY FAILURE, UNSPECIFIED 11/27/2018 Ayad, Harmony W N39.0 URINARY TRACT INFECTION, SITE NOT SPECIFIED 11/30/2018 MACY SHELDON DO Ot Z29.8 ENCOUNTER FOR OTHER SPECIFIED PROPHYLACT 11/30/2018 Ayad, Harmony W 041.7 PSEUDOMONAS INFECTION IN CONDITIONS CLASSIFIED ELSEWHERE AND OF UNSPECIFIED SITE 11/30/2018 Ayad, Harmony W 244.9 UNSPECIFIED HYPOTHYROIDISM 11/30/2018 Ayad, Harmony W 250.00 DIABETES MELLITUS WITHOUT MENTION OF COMPLICATION, TYPE II OR UNSPECIFIED TYPE, NOT STATED UNCONTROLLED 11/30/2018 Ayad, Harmony W 276.1 HYPOSMOLALITY AND/OR HYPONATREMIA 11/30/2018 Ayad, Harmony W 276.8 HYPOPOTASSEMIA 11/30/2018 Ayad, Harmony W 285.9 ANEMIA, UNSPECIFIED 11/30/2018 Ayad, Harmony W 584.9 ACUTE KIDNEY FAILURE, UNSPECIFIED 11/30/2018 Ayad, Harmony W 585.9 CHRONIC KIDNEY DISEASE, UNSPECIFIED 11/30/2018 Ayad, Harmony W 596.54 NEUROGENIC BLADDER NOS 11/30/2018 Ayad, Harmony W 599.0 URINARY TRACT INFECTION, SITE NOT SPECIFIED 11/30/2018 Ayad Harmony W B96.5 PSEUDOMONAS (MALLEI) CAUSING DISEASES CLASSD ELSWHR 11/30/2018 America Liona W D64.9 ANEMIA, UNSPECIFIED 11/30/2018 Harmony Lion W E03.9 HYPOTHYROIDISM, UNSPECIFIED 11/30/2018 Harmony Lion W E11.9 TYPE 2 DIABETES MELLITUS WITHOUT COMPLICATIONS 11/30/2018 Harmony Lion W E87.1 HYPO- OSMOLALITY AND HYPONATREMIA 11/30/2018 Harmony Lion W E87.6 HYPOKALEMIA 11/30/2018 Harmoyn Lion W N17.9 ACUTE KIDNEY FAILURE, UNSPECIFIED 11/30/2018 Harmony Lion W N18.9 CHRONIC KIDNEY DISEASE, UNSPECIFIED 11/30/2018 Harmony Lion W N31.9 NEUROMUSCULAR DYSFUNCTION OF BLADDER, UNSPECIFIED 11/30/2018 Harmony Lion W N39.0 URINARY TRACT INFECTION, SITE NOT SPECIFIED 11/30/2018 Harmony Lion W V10.45 PERSONAL HISTORY OF MALIGNANT NEOPLASM OF UNSPECIFIED MALE GENITAL ORGAN 11/30/2018 Harmony Lion W Z85.45 PERSONAL HISTORY OF MALIG NEOPLM OF UNSP MALE GENITAL ORGAN 12/01/2018 MACY SHELDON DO S Ot Z29.8 ENCOUNTER FOR OTHER SPECIFIED PROPHYLACT 01/27/2019 Ot 433.10 CAROTID ARTERY OCCLUSION W O CEREBRAL IN 01/27/2019 Ot 433.30 MULT BILTRAL ARTERY OCCLUSION WO CEREBRA 01/27/2019 Ot D64.9 ANEMIA, UNSPECIFIED 01/27/2019 Ot R19.5 OTHER FECAL ABNORMALITIES 01/27/2019 Ot Z01.818 ENCOUNTER FOR OTHER PREPROCEDURAL EXAMIN 01/27/2019 ONEAL ROSALES, RADHA العلي Ot D64.9 ANEMIA, UNSPECIFIED 01/27/2019 ONEAL ROSALES, RADHA العلي Ot Z01.818 ENCOUNTER FOR OTHER PREPROCEDURAL EXAMIN 01/27/2019 BERYL SHELDON DOLINE S Ot N13.30 UNSPECIFIED HYDRONEPHROSIS 01/27/2019 BERYL SHELDON DOLINE S Ot N13.30 UNSPECIFIED HYDRONEPHROSIS 01/27/2019 MACY SHELDON DO S Ot N32.3 DIVERTICULUM OF BLADDER 01/27/2019 MACY SHELDON DO S Ot Z85.46 PERSONAL HISTORY OF MALIGNANT NEOPLASM O 01/27/2019 MACY SHELDON DO S Ot I49.9 CARDIAC ARRHYTHMIA, UNSPECIFIED 01/27/2019 ORENDER DO, MACY S Ot I65.23 OCCLUSION AND STENOSIS OF BILATERAL [place] 01/27/2019 Mounika TOMLIN MD Ot N13.30 UNSPECIFIED HYDRONEPHROSIS 01/27/2019 Mounika TOMLIN MD Ot N32.89 OTHER SPECIFIED DISORDERS OF BLADDER 01/27/2019 Mounika TOMLIN MD Ot N39.490 OVERFLOW INCONTINENCE 01/27/2019 Mounika TOMLIN MD, Ot Z85.46 PERSONAL HISTORY OF MALIGNANT NEOPLASM O 01/30/2019 Ot 433.10 CAROTID ARTERY OCCLUSION W O CEREBRAL IN 01/30/2019 Ot 433.30 MULT BILTRAL ARTERY OCCLUSION WO CEREBRA 01/30/2019 Ot D64.9 ANEMIA, UNSPECIFIED 01/30/2019 Ot R19.5 OTHER FECAL ABNORMALITIES 01/30/2019 Ot Z01.818 ENCOUNTER FOR OTHER PREPROCEDURAL EXAMIN 01/30/2019 ONEAL ROSALES, RADHA العلي Ot D64.9 ANEMIA, UNSPECIFIED 01/30/2019 ONEAL ROSALES, RADHA العلي Ot Z01.818 ENCOUNTER FOR OTHER PREPROCEDURAL EXAMIN 01/30/2019 ORENDER DO, MACY S Ot N13.30 UNSPECIFIED HYDRONEPHROSIS 01/30/2019 ORENDER DO, MACY S Ot N13.30 UNSPECIFIED HYDRONEPHROSIS 01/30/2019 ERICNDER DO, MACY S Ot N32.3 DIVERTICULUM OF BLADDER 01/30/2019 ERICNDER DO, MACY S Ot Z85.46 PERSONAL HISTORY OF MALIGNANT NEOPLASM O 01/30/2019 ERICNDER DO, MACY S Ot I49.9 CARDIAC ARRHYTHMIA, UNSPECIFIED 01/30/2019 ORENDER DO, MACY S Ot I65.23 OCCLUSION AND STENOSIS OF BILATERAL [place] 01/30/2019 Mounika TOMLIN MD Ot N13.30 UNSPECIFIED HYDRONEPHROSIS 01/30/2019 Mounika TOMLIN MD Ot N32.89 OTHER SPECIFIED DISORDERS OF BLADDER 01/30/2019 Mounika TOMLIN MD, Ot N39.490 OVERFLOW INCONTINENCE 01/30/2019 Mounika TOMLIN MD Ot Z85.46 PERSONAL HISTORY OF MALIGNANT NEOPLASM O Procedures There is no data. Results Test Result Range Capillary blood glucose measurement by glucometer (mass/volume) - 11/11/17 08:16 Capillary blood glucose measurement by glucometer (mass/volume) 121 mg/dL 70-110 24 hour urine creatinine measurement (mass/volume) - 09/23/18 09:45 24 hour urine creatinine measurement (mass/volume) 33 mg/dL 30-125 Comprehensive Metabolic Panel - 11/27/18 14:06 Albumin 3.6 g/dL 3.6-5.1 ALP 61 U/L 35-130 ALT 25 U/L 6-45 Anion Gap 17 6-14 AST 25 U/L 2-40 BUN 24 mg/dL 5-25 Calcium 8.6 mg/dL 8.3-10.4 Chloride 96 mmol/L 95-114 CO2 21 mEq/L 22-33 Creat 2.58 mg/dL 0.50-1.50 eGFR 25 mL/min/1.73m2 >59 Globulin 3.0 g/dL 2.3-3.5 Glucose 148 mg/dL 70-110 Osmo 277 280-295 Potassium 3.3 mmol/L 3.5-5.3 Sodium 131 mmol/L 134-148 TBil 1.4 mg/dL 0.2-1.2 TP 6.6 g/dL 6.0-8.3 Blood Culture - 11/27/18 14:06 PRELIM CULTURE RESULTS Blood Culture Negative, No Growth Day 1 FINAL CULTURE RESULTS Blood Culture Negative, No Growth Day 5 MEDIA PLATED Setup at 14:33 on 11/27/2018 @ C 49 CULTURE SOURCE r ac Blood Culture - 11/27/18 14:07 PRELIM CULTURE RESULTS Blood Culture Negative, No Growth Day 1 FINAL CULTURE RESULTS Blood Culture Negative, No Growth Day 5 MEDIA PLATED Setup at 14:33 on 11/27/2018 @ C43 CULTURE SOURCE l ac Lactic Acid - 11/27/18 15:36 Lactic Acid 7.5 mg/dL 4.5-19.8 Urinalysis - 11/27/18 15:37 Icotest N/A Negative Urine Volume Urine Volume Sufficient (10mL) Urine-Appearance Cloudy Clear Urine-Bacteria 4+ Urine-Bilirubin Negative Negative Urine-Blood 3+ Negative Urine-Color Yellow Colorless-Lt. Yellow Urine-Epithelial Cells 0-5/HPF Urine-Glucose Negative Negative Urine-Ketones Trace Negative Urine-Leukocytes 3+ Negative Urine-Nitrite Negative Negative Urine-Other Culture to follow Urine-pH 6.5 5-8.5 Urine-Protein 2+ Negative Urine-RBC TNTC Urine-Specific [place] 1.015 1.000-1.030 Urine-WBC TNTC Urobilinogen 0.2 E.U./dL 0.2-1.0 Urine Culture - 11/27/18 15:37 PRELIM CULTURE RESULTS >100,000 Gram Negative Non-Lactose [employer] LON / ID to Follow CULTURE SOURCE cath Sensi - 11/27/18 15:37 FINAL CULTURE RESULTS Pseudomonas aeruginosa (Isolate 1) Ampicillin/Sulbactam >16/8 Ampicillin >16 Amoxicillin/K Clavulanate >16/8 Ceftriaxone 32 Ciprofloxacin <=1 Nitrofurantoin >64 Gentamicin <=4 Levofloxacin <=2 Trimethoprim/ Sulfamethoxazole >2/38 Tetracycline 8 Amikacin <=16 Aztreonam <=8 Ceftazidime <=1 Ceftazidime/K Clavulanate >2 Cephalothin >16 Cefotaxime 16 Cefotaxime/K Clavulanate >4 Cefoxitin >16 Cefazolin >16 Cefepime <=8 Cefuroxime >16 Ertapenem 2 Imipenem <=4 Meropenem <=4 Piperacillin/Tazobactam <=16 Piperacillin <=16 Tigecycline N/R Tobramycin <=4 Iron - 11/28/18 05:15 Iron 6 ug/dL 70-200 Ferritin - 11/28/18 05:15 Ferritin 273.99 ng/mL 21.81-274.66 BMP - 11/28/18 05:15 Anion Gap 12 6-14 BUN 23 mg/dL 5-25 Calcium 7.8 mg/dL 8.3-10.4 Chloride 103 mmol/L 95-114 CO2 23 mEq/L 22-33 Creat 2.36 mg/dL 0.50-1.50 eGFR 27 mL/min/1.73m2 >59 Glucose 103 mg/dL 70-110 Osmo 283 280-295 Potassium 3.4 mmol/L 3.5-5.3 Sodium 135 mmol/L 134-148 IFOBT Occult Blood - 11/28/18 17:48 IFOBT Occult Blood POSITIVE Negative CBC with Auto Diff - 11/29/18 05:00 Baso% 0.20 % 0.00-2.50 Eos 0.0 K/uL 0.0-0.7 Eos% 0.1 % 0.0-7.0 Hct 29.0 % 42.0-52.0 Hgb 9.8 g/dL 14.0-17.0 Lym 0.52 K/uL 0.60-3.40 Lym% 3.2 % 10.0-50.0 MCH 31.0 pg 27.0-31.2 MCHC 33.8 g/dL 32.0-36.0 MCV 91.8 fL 80.0-97.0 Kleberg% 7.6 % 0.0-12.0 MPV 10.3 fL 7.4-10.0 Ori% 88.9 % 37.0-80.0 Plt 271 K/uL 150-400 RBC 3.16 M/uL 4.20-5.40 RDW 13.0 % 11.6-14.8 WBC 16.25 K/uL 5.00-10.00 Ori 14.46 K/uL 2.00-6.90 [place] 1.2 K/uL 0.0-0.9 Baso 0.0 K/uL 0.0-0.2 Comprehensive Metabolic Panel - 11/29/18 05:00 Albumin 3.0 g/dL 3.6-5.1 ALP 61 U/L 35-130 ALT 28 U/L 6-45 Anion Gap 13 6-14 AST 30 U/L 2-40 BUN 26 mg/dL 5-25 Calcium 7.6 mg/dL 8.3-10.4 Chloride 104 mmol/L 95-114 CO2 21 mEq/L 22-33 Creat 2.33 mg/dL 0.50-1.50 eGFR 28 mL/min/1.73m2 >59 Globulin 2.2 g/dL 2.3-3.5 Glucose 87 mg/dL 70-110 Osmo 283 280-295 Potassium 3.1 mmol/L 3.5-5.3 Sodium 135 mmol/L 134-148 TBil 0.6 mg/dL 0.2-1.2 TP 5.2 g/dL 6.0-8.3 Comprehensive Metabolic Panel - 11/30/18 05:15 Albumin 3.0 g/dL 3.6-5.1 ALP 66 U/L 35-130 ALT 36 U/L 6-45 Anion Gap 14 6-14 AST 35 U/L 2-40 BUN 25 mg/dL 5-25 Calcium 7.8 mg/dL 8.3-10.4 Chloride 108 mmol/L 95-114 CO2 21 mEq/L 22-33 Creat 2.01 mg/dL 0.50-1.50 eGFR 33 mL/min/1.73m2 >59 Globulin 2.2 g/dL 2.3-3.5 Glucose 117 mg/dL 70-110 Osmo 292 280-295 Potassium 3.5 mmol/L 3.5-5.3 Sodium 139 mmol/L 134-148 TBil 0.5 mg/dL 0.2-1.2 TP 5.2 g/dL 6.0-8.3 Comprehensive Metabolic Panel - 12/01/18 05:25 Albumin 2.9 g/dL 3.6-5.1 ALP 66 U/L 35-130 ALT 51 U/L 6-45 Anion Gap 14 6-14 AST 47 U/L 2-40 BUN 19 mg/dL 5-25 Calcium 7.7 mg/dL 8.3-10.4 Chloride 110 mmol/L 95-114 CO2 20 mEq/L 22-33 Creat 1.76 mg/dL 0.50-1.50 eGFR 38 mL/min/1.73m2 >59 Globulin 2.3 g/dL 2.3-3.5 Glucose 103 mg/dL 70-110 Osmo 291 280-295 Potassium 3.5 mmol/L 3.5-5.3 Sodium 140 mmol/L 134-148 TBil 0.6 mg/dL 0.2-1.2 TP 5.2 g/dL 6.0-8.3 Comprehensive Metabolic Panel - 12/02/18 04:50 Albumin 3.0 g/dL 3.6-5.1 ALP 70 U/L 35-130 ALT 73 U/L 6-45 Anion Gap 16 6-14 AST 55 U/L 2-40 BUN 19 mg/dL 5-25 Calcium 8.1 mg/dL 8.3-10.4 Chloride 110 mmol/L 95-114 CO2 18 mEq/L 22-33 Creat 1.76 mg/dL 0.50-1.50 eGFR 38 mL/min/1.73m2 >59 Globulin 2.3 g/dL 2.3-3.5 Glucose 120 mg/dL 70-110 Osmo 292 280-295 Potassium 3.6 mmol/L 3.5-5.3 Sodium 140 mmol/L 134-148 TBil 0.5 mg/dL 0.2-1.2 TP 5.3 g/dL 6.0-8.3 Comprehensive Metabolic Panel - 12/03/18 07:00 Albumin 3.5 g/dL 3.6-5.1 ALP 72 U/L 35-130 ALT 70 U/L 6-45 Anion Gap 16 6-14 AST 41 U/L 2-40 BUN 21 mg/dL 5-25 Calcium 8.9 mg/dL 8.3-10.4 Chloride 109 mmol/L 95-114 CO2 19 mEq/L 22-33 Creat 1.89 mg/dL 0.50-1.50 eGFR 35 mL/min/1.73m2 >59 Globulin 2.6 g/dL 2.3-3.5 Glucose 126 mg/dL 70-110 Osmo 293 280-295 Potassium 3.6 mmol/L 3.5-5.3 Sodium 140 mmol/L 134-148 TBil 0.5 mg/dL 0.2-1.2 TP 6.1 g/dL 6.0-8.3 Comprehensive Metabolic Panel - 12/04/18 05:26 Albumin 3.2 g/dL 3.6-5.1 ALP 64 U/L 35-130 ALT 70 U/L 6-45 Anion Gap 14 6-14 AST 44 U/L 2-40 BUN 23 mg/dL 5-25 Calcium 8.8 mg/dL 8.3-10.4 Chloride 110 mmol/L 95-114 CO2 21 mEq/L 22-33 Creat 1.99 mg/dL 0.50-1.50 eGFR 33 mL/min/1.73m2 >59 Globulin 2.4 g/dL 2.3-3.5 Glucose 110 mg/dL 70-110 Osmo 297 280-295 Potassium 3.2 mmol/L 3.5-5.3 Sodium 142 mmol/L 134-148 TBil 0.5 mg/dL 0.2-1.2 TP 5.6 g/dL 6.0-8.3 Capillary blood glucose measurement by glucometer (mass/volume) - 01/27/19 18:39 Capillary blood glucose measurement by glucometer (mass/volume) 127 mg/dL 70-110 Complete blood count (CBC) with automated white blood cell (WBC) differential - 01/27/19 18:43 Blood leukocytes automated count (number/volume) 9.5 10*3/uL 4.3-11.0 Blood erythrocytes automated count (number/volume) 3.78 10*6/uL 4.35-5.85 Venous blood hemoglobin measurement (mass/volume) 11.5 g/dL 13.3-17.7 Blood hematocrit (volume fraction) 34 % 40-54 Automated erythrocyte mean corpuscular volume 91 [foz_us] 80-99 Automated erythrocyte mean corpuscular hemoglobin (mass per erythrocyte) 30 pg 25-34 Automated erythrocyte mean corpuscular hemoglobin concentration measurement (mass/volume) 34 g/dL 32-36 Automated erythrocyte distribution width ratio 13.4 % 10.0- 14.5 Automated blood platelet count (count/volume) 311 10*3/uL 130-400 Automated blood platelet mean volume measurement 9.7 [foz_us] 7.4-10.4 Automated blood neutrophils/100 leukocytes 65 % 42-75 Automated blood lymphocytes/100 leukocytes 21 % 12-44 Blood monocytes/100 leukocytes 8 % 0-12 Automated blood eosinophils/100 leukocytes 5 % 0-10 Automated blood basophils/100 leukocytes 1 % 0-10 Blood neutrophils automated count (number/volume) 6.2 10*3 1.8-7.8 Blood lymphocytes automated count (number/volume) 2.0 10*3 1.0-4.0 Blood monocytes automated count (number/volume) 0.8 10*3 0.0- 1.0 Automated eosinophil count 0.4 10*3/uL 0.0-0.3 Automated blood basophil count (count/volume) 0.1 10*3/uL 0.0-0.1 PT panel in platelet poor plasma by coagulation assay - 01/27/19 18:43 Prothrombin time (PT) in platelet poor plasma by coagulation assay 13.7 s 12.2-14.7 INR in platelet poor plasma or blood by coagulation assay 1.0 0.8-1.4 Activated partial thromboplastin time (aPTT) in platelet poor plasma bycoagulation assay - 01/27/19 18:43 Activated partial thromboplastin time (aPTT) in platelet poor plasma bycoagulation assay 33 s 24-35 Fibrin D-dimer FEU measurement in platelet poor plasma (mass/volume) - 01/27/19 18:43 Fibrin D-dimer FEU measurement in platelet poor plasma (mass/volume) 0.48 ug/mL 0.00-0.49 Magnesium - 01/27/19 18:43 Magnesium 1.8 mg/dL 1.8-2.4 Comprehensive metabolic panel - 01/27/19 18:43 Serum or plasma sodium measurement (moles/volume) 140 mmol/L 135-145 Serum or plasma potassium measurement (moles/volume) 3.7 mmol/L 3.6-5.0 Serum or plasma chloride measurement (moles/volume) 105 mmol/L 98-107 Carbon dioxide 21 mmol/L 21-32 Serum or plasma anion gap determination (moles/volume) 14 mmol/L 5-14 Serum or plasma urea nitrogen measurement (mass/volume) 24 mg/dL 7-18 Serum or plasma creatinine measurement (mass/volume) 2.01 mg/dL 0.60-1.30 Serum or plasma urea nitrogen/creatinine mass ratio 12 NRG Serum or plasma creatinine measurement with calculation of estimated glomerular filtration rate 33 NRG Serum or plasma glucose measurement (mass/volume) 123 mg/dL 70-105 Serum or plasma calcium measurement (mass/volume) 9.5 mg/dL 8.5-10.1 Serum or plasma total bilirubin measurement (mass/volume) 0.5 mg/dL 0.1-1.0 Serum or plasma alkaline phosphatase measurement (enzymatic activity/volume) 76 U/L 40-136 Serum or plasma aspartate aminotransferase measurement (enzymatic activity/volume) 19 U/L 5-34 Serum or plasma alanine aminotransferase measurement (enzymatic activity/volume) 32 U/L 0-55 Serum or plasma protein measurement (mass/volume) 7.1 g/dL 6.4-8.2 Serum or plasma albumin measurement (mass/volume) 4.2 g/dL 3.2-4.5 CALCIUM CORRECTED 9.3 mg/dL 8.5-10.1 Serum or plasma ethanol measurement (mass/volume) - 01/27/19 18:43 Serum or plasma ethanol measurement (mass/volume) < mg/dL <10 Serum or plasma troponin i.cardiac measurement (mass/volume) - 01/27/19 18:43 Serum or plasma troponin i.cardiac measurement (mass/volume) 0.032 ng/mL <0.028 Complete urinalysis with reflex to culture - 01/27/19 20:49 Urine color determination RED NRG Urine clarity determination BLOODY NRG Urine pH measurement by test strip 7 5-9 Specific gravity of urine by test strip 1.010 1.016-1.022 Urine protein assay by test strip, semi-quantitative 4+ NEGATIVE Urine glucose detection by automated test strip NEGATIVE NEGATIVE Erythrocytes detection in urine sediment by light microscopy 5+ NEGATIVE Urine ketones detection by automated test strip 2+ NEGATIVE Urine nitrite detection by test strip NEGATIVE NEGATIVE Urine total bilirubin detection by test strip NEGATIVE NEGATIVE Urine urobilinogen measurement by automated test strip (mass/volume) NORMAL NORMAL Urine leukocyte esterase detection by dipstick NEGATIVE NEGATIVE Automated urine sediment erythrocyte count by microscopy (number/high power field) TNTC NRG Automated urine sediment leukocyte count by microscopy (number/high power field) NONE NRG Bacteria detection in urine sediment by light microscopy NEGATIVE NRG Squamous epithelial cells detection in urine sediment by light microscopy 2-5 NRG Crystals detection in urine sediment by light microscopy NONE NRG Casts detection in urine sediment by light microscopy NONE NRG Mucus detection in urine sediment by light microscopy NEGATIVE NRG Complete urinalysis with reflex to culture NO NRG Renal epithelial cells detection in urine sediment by light microscopy 2-5 NRG Urine drug screening test - 01/27/19 20:49 Urine phencyclidine detection by screening method NEGATIVE NEGATIVE Urine benzodiazepines detection by screening method NEGATIVE NEGATIVE Urine cocaine detection NEGATIVE NEGATIVE Urine amphetamines detection by screening method NEGATIVE NEGATIVE Urine methamphetamine detection by screening method NEGATIVE NEGATIVE Urine cannabinoids detection by screening method NEGATIVE NEGATIVE Urine opiates detection by screening method NEGATIVE NEGATIVE Urine barbiturates detection NEGATIVE NEGATIVE Screening urine tricyclic antidepressants detection NEGATIVE NEGATIVE Urine methadone detection by screening method NEGATIVE NEGATIVE Urine oxycodone detection NEGATIVE NEGATIVE Urine propoxyphene detection NEGATIVE NEGATIVE Complete blood count (CBC) with automated white blood cell (WBC) differential - 01/28/19 03:05 Blood leukocytes automated count (number/volume) 14.9 10*3/uL 4.3-11.0 Blood erythrocytes automated count (number/volume) 3.53 10*6/uL 4.35-5.85 Venous blood hemoglobin measurement (mass/volume) 10.5 g/dL 13.3-17.7 Blood hematocrit (volume fraction) 32 % 40-54 Automated erythrocyte mean corpuscular volume 92 [foz_us] 80-99 Automated erythrocyte mean corpuscular hemoglobin (mass per erythrocyte) 30 pg 25-34 Automated erythrocyte mean corpuscular hemoglobin concentration measurement (mass/volume) 33 g/dL 32-36 Automated erythrocyte distribution width ratio 13.3 % 10.0- 14.5 Automated blood platelet count (count/volume) 303 10*3/uL 130-400 Automated blood platelet mean volume measurement 10.7 [foz_us] 7.4-10.4 Automated blood neutrophils/100 leukocytes 86 % 42-75 Automated blood lymphocytes/100 leukocytes 6 % 12-44 Blood monocytes/100 leukocytes 6 % 0-12 Automated blood eosinophils/100 leukocytes 2 % 0-10 Automated blood basophils/100 leukocytes 0 % 0-10 Blood neutrophils automated count (number/volume) 12.8 10*3 1.8-7.8 Blood lymphocytes automated count (number/volume) 0.9 10*3 1.0-4.0 Blood monocytes automated count (number/volume) 0.9 10*3 0.0- 1.0 Automated eosinophil count 0.3 10*3/uL 0.0-0.3 Automated blood basophil count (count/volume) 0.0 10*3/uL 0.0-0.1 Comprehensive metabolic panel - 01/28/19 03:05 Serum or plasma sodium measurement (moles/volume) 140 mmol/L 135-145 Serum or plasma potassium measurement (moles/volume) 3.8 mmol/L 3.6-5.0 Serum or plasma chloride measurement (moles/volume) 110 mmol/L 98-107 Carbon dioxide 20 mmol/L 21-32 Serum or plasma anion gap determination (moles/volume) 10 mmol/L 5-14 Serum or plasma urea nitrogen measurement (mass/volume) 24 mg/dL 7-18 Serum or plasma creatinine measurement (mass/volume) 2.13 mg/dL 0.60-1.30 Serum or plasma urea nitrogen/creatinine mass ratio 11 NRG Serum or plasma creatinine measurement with calculation of estimated glomerular filtration rate 31 NRG Serum or plasma glucose measurement (mass/volume) 106 mg/dL 70-105 Serum or plasma calcium measurement (mass/volume) 8.4 mg/dL 8.5-10.1 Serum or plasma total bilirubin measurement (mass/volume) 0.5 mg/dL 0.1-1.0 Serum or plasma alkaline phosphatase measurement (enzymatic activity/volume) 64 U/L 40-136 Serum or plasma aspartate aminotransferase measurement (enzymatic activity/volume) 19 U/L 5-34 Serum or plasma alanine aminotransferase measurement (enzymatic activity/volume) 25 U/L 0-55 Serum or plasma protein measurement (mass/volume) 5.9 g/dL 6.4-8.2 Serum or plasma albumin measurement (mass/volume) 3.5 g/dL 3.2-4.5 CALCIUM CORRECTED 8.8 mg/dL 8.5-10.1 Serum or plasma troponin i.cardiac measurement (mass/volume) - 01/28/19 03:05 Serum or plasma troponin i.cardiac measurement (mass/volume) 0.033 ng/mL <0.028 Lipid 1996 panel - 01/28/19 03:05 Serum or plasma triglyceride measurement (mass/volume) 164 mg/dL <150 Serum or plasma cholesterol measurement (mass/volume) 104 mg/dL < 200 Serum or plasma cholesterol in HDL measurement (mass/volume) 23 mg/dL 40-60 Cholesterol in LDL [mass/volume] in serum or plasma by direct assay 61 mg/dL 1-129 Serum or plasma cholesterol in VLDL measurement (mass/volume) 33 mg/dL 5-40 Bacterial blood culture - 01/28/19 07:50 Bacterial blood culture NG NRG Bacterial blood culture - 01/28/19 07:55 Bacterial blood culture NG NRG Bacterial blood culture - 01/28/19 08:00 QUANTITY OF GROWTH . [facility] Bacterial blood culture SEE [facility] Capillary blood glucose measurement by glucometer (mass/volume) - 01/28/19 13:42 Capillary blood glucose measurement by glucometer (mass/volume) 106 mg/dL 70-110 Capillary blood glucose measurement by glucometer (mass/volume) - 01/28/19 15:44 Capillary blood glucose measurement by glucometer (mass/volume) 164 mg/dL 70-110 Capillary blood glucose measurement by glucometer (mass/volume) - 01/28/19 20:26 Capillary blood glucose measurement by glucometer (mass/volume) 89 mg/dL 70-110 Complete blood count (CBC) with automated white blood cell (WBC) differential - 01/29/19 03:25 Blood leukocytes automated count (number/volume) 9.5 10*3/uL 4.3-11.0 Blood erythrocytes automated count (number/volume) 3.33 10*6/uL 4.35-5.85 Venous blood hemoglobin measurement (mass/volume) 10.0 g/dL 13.3-17.7 Blood hematocrit (volume fraction) 31 % 40-54 Automated erythrocyte mean corpuscular volume 92 [foz_us] 80-99 Automated erythrocyte mean corpuscular hemoglobin (mass per erythrocyte) 30 pg 25-34 Automated erythrocyte mean corpuscular hemoglobin concentration measurement (mass/volume) 33 g/dL 32-36 Automated erythrocyte distribution width ratio 13.7 % 10.0- 14.5 Automated blood platelet count (count/volume) 275 10*3/uL 130-400 Automated blood platelet mean volume measurement 10.4 [foz_us] 7.4-10.4 Automated blood neutrophils/100 leukocytes 74 % 42-75 Automated blood lymphocytes/100 leukocytes 15 % 12-44 Blood monocytes/100 leukocytes 7 % 0-12 Automated blood eosinophils/100 leukocytes 3 % 0-10 Automated blood basophils/100 leukocytes 0 % 0-10 Blood neutrophils automated count (number/volume) 7.0 10*3 1.8-7.8 Blood lymphocytes automated count (number/volume) 1.4 10*3 1.0-4.0 Blood monocytes automated count (number/volume) 0.7 10*3 0.0- 1.0 Automated eosinophil count 0.3 10*3/uL 0.0-0.3 Automated blood basophil count (count/volume) 0.0 10*3/uL 0.0-0.1 Comprehensive metabolic panel - 01/29/19 03:25 Serum or plasma sodium measurement (moles/volume) 143 mmol/L 135-145 Serum or plasma potassium measurement (moles/volume) 3.7 mmol/L 3.6-5.0 Serum or plasma chloride measurement (moles/volume) 115 mmol/L 98-107 Carbon dioxide 18 mmol/L 21-32 Serum or plasma anion gap determination (moles/volume) 10 mmol/L 5-14 Serum or plasma urea nitrogen measurement (mass/volume) 24 mg/dL 7-18 Serum or plasma creatinine measurement (mass/volume) 2.30 mg/dL 0.60-1.30 Serum or plasma urea nitrogen/creatinine mass ratio 10 NRG Serum or plasma creatinine measurement with calculation of estimated glomerular filtration rate 28 NRG Serum or plasma glucose measurement (mass/volume) 106 mg/dL 70-105 Serum or plasma calcium measurement (mass/volume) 8.7 mg/dL 8.5-10.1 Serum or plasma total bilirubin measurement (mass/volume) 0.4 mg/dL 0.1-1.0 Serum or plasma alkaline phosphatase measurement (enzymatic activity/volume) 61 U/L 40-136 Serum or plasma aspartate aminotransferase measurement (enzymatic activity/volume) 16 U/L 5-34 Serum or plasma alanine aminotransferase measurement (enzymatic activity/volume) 22 U/L 0-55 Serum or plasma protein measurement (mass/volume) 6.0 g/dL 6.4-8.2 Serum or plasma albumin measurement (mass/volume) 3.5 g/dL 3.2-4.5 CALCIUM CORRECTED 9.1 mg/dL 8.5-10.1 Serum or plasma phosphate measurement (mass/volume) - 01/29/19 03:25 Serum or plasma phosphate measurement (mass/volume) 3.9 mg/dL 2.3-4.7 Magnesium - 01/29/19 03:25 Magnesium 2.3 mg/dL 1.8-2.4 Serum or plasma troponin i.cardiac measurement (mass/volume) - 01/29/19 03:25 Serum or plasma troponin i.cardiac measurement (mass/volume) < ng/mL <0.028 Capillary blood glucose measurement by glucometer (mass/volume) - 01/29/19 05:32 Capillary blood glucose measurement by glucometer (mass/volume) 105 mg/dL 70-110 Capillary blood glucose measurement by glucometer (mass/volume) - 01/29/19 18:02 Capillary blood glucose measurement by glucometer (mass/volume) 128 mg/dL 70-110 Capillary blood glucose measurement by glucometer (mass/volume) - 01/30/19 02:21 Capillary blood glucose measurement by glucometer (mass/volume) 95 mg/dL 70-110 Complete blood count (CBC) with automated white blood cell (WBC) differential - 01/30/19 05:05 Blood leukocytes automated count (number/volume) 9.3 10*3/uL 4.3-11.0 Blood erythrocytes automated count (number/volume) 3.27 10*6/uL 4.35-5.85 Venous blood hemoglobin measurement (mass/volume) 9.9 g/dL 13.3-17.7 Blood hematocrit (volume fraction) 30 % 40-54 Automated erythrocyte mean corpuscular volume 92 [foz_us] 80-99 Automated erythrocyte mean corpuscular hemoglobin (mass per erythrocyte) 30 pg 25-34 Automated erythrocyte mean corpuscular hemoglobin concentration measurement (mass/volume) 33 g/dL 32-36 Automated erythrocyte distribution width ratio 13.4 % 10.0- 14.5 Automated blood platelet count (count/volume) 254 10*3/uL 130-400 Automated blood platelet mean volume measurement 11.2 [foz_us] 7.4-10.4 Automated blood neutrophils/100 leukocytes 73 % 42-75 Automated blood lymphocytes/100 leukocytes 15 % 12-44 Blood monocytes/100 leukocytes 6 % 0-12 Automated blood eosinophils/100 leukocytes 5 % 0-10 Automated blood basophils/100 leukocytes 1 % 0-10 Blood neutrophils automated count (number/volume) 6.8 10*3 1.8-7.8 Blood lymphocytes automated count (number/volume) 1.4 10*3 1.0-4.0 Blood monocytes automated count (number/volume) 0.6 10*3 0.0- 1.0 Automated eosinophil count 0.4 10*3/uL 0.0-0.3 Automated blood basophil count (count/volume) 0.1 10*3/uL 0.0-0.1 Comprehensive metabolic panel - 01/30/19 05:05 Serum or plasma sodium measurement (moles/volume) 144 mmol/L 135-145 Serum or plasma potassium measurement (moles/volume) 3.8 mmol/L 3.6-5.0 Serum or plasma chloride measurement (moles/volume) 113 mmol/L 98-107 Carbon dioxide 20 mmol/L 21-32 Serum or plasma anion gap determination (moles/volume) 11 mmol/L 5-14 Serum or plasma urea nitrogen measurement (mass/volume) 23 mg/dL 7-18 Serum or plasma creatinine measurement (mass/volume) 2.29 mg/dL 0.60-1.30 Serum or plasma urea nitrogen/creatinine mass ratio 10 NRG Serum or plasma creatinine measurement with calculation of estimated glomerular filtration rate 28 NRG Serum or plasma glucose measurement (mass/volume) 84 mg/dL 70-105 Serum or plasma calcium measurement (mass/volume) 9.2 mg/dL 8.5-10.1 Serum or plasma total bilirubin measurement (mass/volume) 0.6 mg/dL 0.1-1.0 Serum or plasma alkaline phosphatase measurement (enzymatic activity/volume) 58 U/L 40-136 Serum or plasma aspartate aminotransferase measurement (enzymatic activity/volume) 17 U/L 5-34 Serum or plasma alanine aminotransferase measurement (enzymatic activity/volume) 23 U/L 0-55 Serum or plasma protein measurement (mass/volume) 6.1 g/dL 6.4-8.2 Serum or plasma albumin measurement (mass/volume) 3.6 g/dL 3.2-4.5 CALCIUM CORRECTED 9.5 mg/dL 8.5-10.1 Serum or plasma phosphate measurement (mass/volume) - 01/30/19 05:05 Serum or plasma phosphate measurement (mass/volume) 4.1 mg/dL 2.3-4.7 Magnesium - 01/30/19 05:05 Magnesium 1.6 mg/dL 1.8-2.4 Serum or plasma troponin i.cardiac measurement (mass/volume) - 01/30/19 05:05 Serum or plasma troponin i.cardiac measurement (mass/volume) < ng/mL <0.028 Capillary blood glucose measurement by glucometer (mass/volume) - 01/30/19 13:17 Capillary blood glucose measurement by glucometer (mass/volume) 103 mg/dL 70-110 Encounters ACCT No. Visit Date/Time Discharge Status Pt. Type Provider Facility Loc./Unit Complaint [id number] 11/30/2018 13:00:00 12/05/2018 10:00:00 DIS Inpatient Meño [facility] MED-SURG [id number] 11/27/2018 17:10:00 11/30/2018 13:00:00 DIS Inpatient [facility] MED-SURG [id number] 11/27/2018 15:46:22 Document Registration [id number] 01/28/2019 10:25:00 01/30/2019 14:27:00 DIS Inpatient MORALESTASIA IRIZARRY DO Via [facility] 4TH TIA,RENAL FAILURE,HTN [id number] 12/01/2018 00:13:00 12/01/2018 23:59:59 CLS Preadmit MACY SHELDON DO S [facility] CR3 HTN [id number] 11/25/2018 09:08:00 11/30/2018 00:01:00 DIS Outpatient MACY SHELDON DO S [facility] CR3 HTN [id number] 10/26/2018 08:50:00 10/26/2018 00:01:00 DIS Outpatient MACY SHELDON DO [facility] CR3 HTN [id number] 09/23/2018 09:08:00 09/23/2018 23:59:59 CLS Outpatient Mounika TOMLIN MD [facility] RAD OVERFLOW INCONTINENCE [id number] 06/28/2018 08:53:00 06/28/2018 23:59:59 CLS Outpatient MACY SHELDON DO [facility] RAD CAROTID ARTERY STENOSIS [id number] 02/18/2018 09:08:00 02/18/2018 23:59:59 CLS Outpatient MACY SHELDON DO [facility] RAD BILATERAL HYDRONEPHROSIS,HX OF PROSTATE CANCER [id number] 02/11/2018 08:52:00 02/11/2018 23:59:59 CLS Outpatient MACY SHELDON DO [facility] RAD RENAL INSUFFICIENCY [id number] 02/08/2018 09:53:00 02/08/2018 23:59:59 CLS Preadmit MACY SHELDON DO [facility] RAD RENAL INSUFF [id number] 11/11/2017 07:29:00 11/11/2017 10:12:00 DIS Outpatient RADHA NO MD [facility] ENDO IRON DEF ANEMIA [id number] 11/09/2017 10:30:00 11/09/2017 11:18:00 DIS Outpatient RADHA NO MD [facility] PREOP COLONOSCOPY [id number] 06/03/2015 07:55:00 06/03/2015 10:00:00 DIS Outpatient RADHA NO MD [facility] SDC ANEMIA [id number] 05/29/2015 05:35:00 05/29/2015 23:59:59 CLS Outpatient RADHA NO MD [facility] PREOP ANEMIA [id number] 05/13/2015 08:50:00 05/13/2015 11:30:00 DIS Outpatient RADHA NO MD [facility] ANEMIA; HEMOCULT POSITIVE STOOLS [id number] 05/08/2015 05:49:00 Document Registration [id number] 09/24/2014 13:50:00 Document Registration [id number] 11/27/2018 13:59:00 Document Registration 01/31/11 01/17/2019 09:26:35 01/17/2019 23:59:59 [facility] Outpatient Macy Sheldon
[2019-01-31 16:01] LABS: BASOPHILS # (AUTO) 0.1 10^3/uL (0.0-0.1); BASOPHILS % (AUTO) 1 % (0-10); EOSINOPHILS # (AUTO) 0.2 10^3/uL (0.0-0.3); EOSINOPHILS % (AUTO) 3 % (0-10); HEMATOCRIT 35 % (40-54); HEMOGLOBIN 11.7 G/DL (13.3-17.7); LYMPHOCYTES # (AUTO) 2.7 X 10^3 (1.0-4.0); LYMPHOCYTES % (AUTO) 28 % (12-44); MEAN CORPUSCULAR HEMOGLOBIN 30 PG (25-34); MEAN CORPUSCULAR HGB CONC 34 G/DL (32-36); MEAN CORPUSCULAR VOLUME 90 FL (80-99); MEAN PLATELET VOLUME 10.3 FL (7.4-10.4); MONOCYTES # (AUTO) 0.8 X 10^3 (0.0-1.0); MONOCYTES % (AUTO) 8 % (0-12); NEUTROPHILS # (AUTO) 5.9 X 10^3 (1.8-7.8); NEUTROPHILS % (AUTO) 61 % (42-75); PLATELET COUNT 329 10^3/uL (130-400); RED CELL DISTRIBUTION WIDTH 13.2 % (10.0-14.5); WHITE BLOOD COUNT 9.7 10^3/uL (4.3-11.0)
--- NOTE | 2019-01-31 16:08 | NUR ---
TO CT PER CART ACCOMPIED BUY NIKUNJ. MARY
[2019-01-31 16:26] LABS: ALANINE AMINOTRANSFERASE 39 U/L (0-55); ALBUMIN 4.4 GM/DL (3.2-4.5); ALKALINE PHOSPHATASE 71 U/L (40-136); BILIRUBIN,TOTAL 0.5 MG/DL (0.1-1.0); BUN/CREATININE RATIO 11; CALCIUM 9.6 MG/DL (8.5-10.1); CARBON DIOXIDE 24 MMOL/L (21-32); CHLORIDE 105 MMOL/L (98-107); CREATININE SERUM 2.24 MG/DL (0.60-1.30); GFR ESTIMATED 29; GLUCOSE 88 MG/DL (70-105); POTASSIUM 3.6 MMOL/L (3.6-5.0); SODIUM 139 MMOL/L (135-145); TOTAL PROTEIN 7.8 GM/DL (6.4-8.2)
[2019-01-31] MEDS ORDERED: NS IV 1000 ML 1,000 ML IV ONE (16:47)
[2019-01-31 16:54] LABS: FIBRIN DEGRADATION PRODUCTS 0.65 UG/ML (0.00-0.49); INR 1.1 (0.8-1.4); PROTHROMBIN TIME PATIENT 14.7 SEC (12.2-14.7)
--- NOTE | 2019-01-31 16:55 | NUR ---
BACK FROM CT. Addendum: 01/31/19 at 1707 by PMCCLURE PATIENT HAS IMPROVED REMEMBERS REPORTS KNEW WHAT YOU WAS ASKING ,BUT COULD NOT
--- NOTE | 2019-01-31 17:02 | Diagnostic Imaging Report ---
INDICATION: Stroke protocol. EXAMINATION: Frontal chest obtained at 4:54 PM. FINDINGS: There is cardiomegaly. There is no focal infiltrate, pneumothorax, or pleural fluid. IMPRESSION: Cardiomegaly with no acute process in the chest. Dictated by: Dictated on workstation # [id number]
--- NOTE | 2019-01-31 17:05 | Diagnostic Imaging Report ---
PROCEDURE: CT head wo r/o stroke. TECHNIQUE: Multiple contiguous axial images were obtained through the brain without the use of intravenous contrast. Auto Exposure Controls were utilized during the CT exam to meet ALARA standards for radiation dose reduction. INDICATION: Stroke. Confusion. COMPARISON: CT head without contrast from 01/28/2019. FINDINGS: Moderate generalized cerebral and cerebellar parenchymal volume loss. Moderate leukoaraiosis. No CT evidence of a territorial infarction. No intracranial hemorrhage, mass effect, hydrocephalus, or extra-axial fluid collections. Osseous structures are intact. The visualized paranasal sinuses and mastoids are clear. IMPRESSION: No acute intracranial CT findings. Dictated by: Dictated on workstation # [id number]
--- NOTE | 2019-01-31 17:13 | ED General ---
General Chief Complaint: Neuro-Stroke Like Symptoms Stated Complaint: STROKE-LIKE SYMPTOMS;AMS,L SIDED FACIAL DROOP Nursing Triage Note: AMB TO ROOM WITH WHO REPORTS APX 30MIN YOUTH CARE WORKER NOTICED FACIAL HE MAY HAVE FACIAL DROOPING AND NOT BEING ABLE TO GET OUT HIS WORDS. PATIENT WAS DISCHARGE FROM HOSPITAL YESTERDAY WAS ADMITTED ON WEDNESDAY. WITH SAME SYMPTOMS. Nursing Sepsis Screen: No Definite Risk Source of Information: Patient, Family, Old Records Exam Limitations: Physical Impairments History of Present Illness Date Seen by Provider: Jan 31, 2019 Time Seen by Provider: 15:49 Initial Comments This 74-year-old gentleman is brought to the emergency room by his with concerns about speech difficulty with abrupt onset about 15:15. He was normal just prior to that. Patient had been admitted to the hospital from January 27 through January [address] angiogram was not performed at that time due to improving symptoms and patient's renal failure. CT revealed a questionable subacute thalamic infarct. No MRI was performed after that. He had complete spontaneous resolution at that time. Patient also has had recent GI procedures performed due to GI bleed. 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 He required transfusions due to associated blood loss. This was reportedly performed January 05. Patient denies any bleeding since then. Patient walked into the emergency room on his own power and appears to have no motor deficits. Stroke activation was paged. Allergies and Home Medications Allergies Coded Allergies: Penicillins (Verified Allergy, Unknown, HIVES, 01/27/19) Home Medications Acetaminophen 500 Mg Tablet, 1,000 MG PO Q6H PRN for PAIN-MILD, (Reported) Aspirin 81 Mg Tablet.dr, 81 MG PO DAILY Prescribed by: KARLEE SHELDON on 01/30/19 1244 Bisacodyl 10 Mg Supp.rect, 10 MG RC for CONSTIPATION-4TH LINE, (Reported) C,E,Zinc,Copper 11/Crqao6k/Lut 1 Each Capsule, 1 CAP PO DAILY, (Reported) Cyanocobalamin (Vitamin B-12) 2,500 Mcg Tab.chew, 2,500 MCG PO HS, (Reported) Ferrous Sulfate 325 Mg Tablet, 325 MG PO DAILY, (Reported) Glimepiride 1 Mg Tablet, 1 MG PO BID, (Reported) Levothyroxine Sodium 75 Mcg Tablet, 75 MCG PO HS, (Reported) Metoprolol Succinate 100 Mg Tab.er.24h, 100 MG PO DAILY, (Reported) Multivitamin 1 Each Tablet, 1 TAB PO DAILY, (Reported) Nitrofurantoin Monohyd/M-Cryst 100 Mg Capsule, 100 MG PO DAILY, (Reported) Pantoprazole Sodium 40 Mg Tablet.dr, 40 MG PO DAILY, (Reported) Polyethylene Glycol 3350 119 Gm Powder, 17 GM PO DAILY PRN for CONSTIPATION-2ND LINE, (Reported) Simvastatin 10 Mg Tablet, 10 MG PO HS, (Reported) Patient Home Medication List Home Medication List Reviewed: Yes Review of Systems Review of Systems Constitutional: no symptoms reported EENTM: no symptoms reported Respiratory: no symptoms reported Cardiovascular: no symptoms reported Gastrointestinal: see HPI Genitourinary: other (patient performs straight cath to void) Musculoskeletal: no symptoms reported Skin: no symptoms reported Psychiatric/Neurological: See HPI Hematologic/Lymphatic: See HPI Immunological/Allergic: no symptoms reported Past Dkcewzd-Bmzwqw-Fvkceu Hx Past Med/Social Hx: Reviewed and Corrections made Patient Social History Alcohol Use: Denies Use Number of Drinks Today: AA Alcohol Beverage of Choice: Beer Recreational Drug Use: No Type Used: Smokeless Tobacco Former Smoker, Quit: Nov 09, 1996 Recent Foreign Travel: No Contact w/Someone Who Travel: No Recent Infectious Disease Expo: No Recent Hopitalizations: No Immunizations Up To Date Date of Pneumonia Vaccine: Aug 02, 2014 Date of Influenza Vaccine: Apr 29, 2017 Seasonal Allergies Seasonal Allergies: Yes Past Medical History Surgeries: Yes Bowel Surgery (colonic AVM clipping), Orthopedic, Vascular Surgery (colonic AVM clipping) Respiratory: No Cardiac: Yes Hypertension, Peripheral Vascular (colonic AVM) Neurological: Yes TIA Genitourinary: Yes (PROSTATE CANCER; SELF CATH'S SINCE 05/2018) Benign Prostatic Hyperpl, Kidney Infection, Prostate Problems, Bladder Infection, Renal Failure, UTI-Chronic Gastrointestinal: Yes (AV MALFORMATION OF COLON) Gastrointestinal Bleed Musculoskeletal: No Endocrine: Yes Hypothyroidsim, Diabetes, Non-Insulin dep Cancer: Yes Prostate Did You Recieve Any Treatments: Yes What Type of Treatment Did You: Radiation Psychosocial: No Integumentary: No Blood Disorders: Yes (IRON DEF ANEMIA) Physical Exam Vital Signs Vital Signs - First Documented 01/31/19 01/31/19 15:47 20:00 Temp 98.0 Pulse 83 Resp 18 B/P (MAP) 185/94 (124) Pulse Ox 99 O2 Delivery Room Air Capillary Refill : Less Than 3 Seconds Height, Weight, BMI Height: 5'10.00" Weight: 213lbs. 8.0oz. 96.049447fp; 31.7 BMI Method:Stated General Appearance: No Apparent Distress, WD/WN HEENT: PERRL/EOMI, Normal ENT Inspection, Pharynx Normal Neck: Normal Inspection Respiratory: Lungs Clear, Normal Breath Sounds, No Accessory Muscle Use, No Respiratory Distress Cardiovascular: Regular Rate, Rhythm, No Edema, No Murmur Gastrointestinal: Non Tender, Soft Extremity: Normal Inspection, No Pedal Edema Neurologic/Psychiatric: Alert, No Motor/Sensory Deficits, Normal Mood/Affect, Abnormal senior web designer II-XII (receptive and expressive aphasia, secondary inability to follow instructions due to aphasia) Skin: Normal Color, Warm/Dry Progress/Results/Core Measures Suspected Sepsis Recent Fever Within 48 Hours: No Infection Criteria Present: None New/Unexplained Altered Menta: No Sepsis Screen: No Definite Risk SIRS Temperature: Pulse: 83 Respiratory Rate: 18 Laboratory Tests 01/31/19 15:49: White Blood Count 9.7 Blood Pressure 185 /94 Mean: 124 Laboratory Tests 01/31/19 15:49: Creatinine 2.24H, INR Comment 1.1, Platelet Count 329, Total Bilirubin 0.5 Results/Orders Lab Results Laboratory Tests Test 01/31/19 15:49 01/31/19 16:57 01/31/19 19:32 Range/Units White Blood Count 9.7 4.3-11.0 10^3/uL Red Blood Count 3.89 L 4.35-5.85 10^6/uL Hemoglobin 11.7 L 13.3-17.7 G/DL Hematocrit 35 L 40-54 % Mean Corpuscular Volume 90 80-99 FL Mean Corpuscular Hemoglobin 30 25-34 PG Mean Corpuscular Hemoglobin Concent 34 32-36 G/DL Red Cell Distribution Width 13.2 10.0-14.5 % Platelet Count 329 130-400 10^3/uL Mean Platelet Volume 10.3 7.4-10.4 FL Neutrophils (%) (Auto) 61 42-75 % Lymphocytes (%) (Auto) 28 12-44 % Monocytes (%) (Auto) 8 0-12 % Eosinophils (%) (Auto) 3 0-10 % Basophils (%) (Auto) 1 0-10 % Neutrophils # (Auto) 5.9 1.8-7.8 X 10^3 Lymphocytes # (Auto) 2.7 1.0-4.0 X 10^3 Monocytes # (Auto) 0.8 0.0-1.0 X 10^3 Eosinophils # (Auto) 0.2 0.0-0.3 10^3/uL Basophils # (Auto) 0.1 0.0-0.1 10^3/uL Prothrombin Time 14.7 12.2-14.7 SEC INR Comment 1.1 0.8-1.4 Activated Partial Thromboplast Time 32 24-35 SEC D-Dimer 0.65 H 0.00-0.49 UG/ML Sodium Level 139 135-145 MMOL/L Potassium Level 3.6 3.6-5.0 MMOL/L Chloride Level 105 98-107 MMOL/L Carbon Dioxide Level 24 21-32 MMOL/L Anion Gap 10 5-14 MMOL/L Blood Urea Nitrogen 25 H 7-18 MG/DL Creatinine 2.24 H 0.60-1.30 MG/DL Estimat Glomerular Filtration Rate 29 BUN/Creatinine Ratio 11 Glucose Level 88 70-105 MG/DL Calcium Level 9.6 8.5-10.1 MG/DL Corrected Calcium 9.3 8.5-10.1 MG/DL Total Bilirubin 0.5 0.1-1.0 MG/DL Aspartate Amino Transf (AST/SGOT) 29 5-34 U/L Alanine Aminotransferase (ALT/SGPT) 39 0-55 U/L Alkaline Phosphatase 71 40-136 U/L Troponin I < 0.028 <0.028 NG/ML Total Protein 7.8 6.4-8.2 GM/DL Albumin 4.4 3.2-4.5 GM/DL Thyroid Stimulating Hormone (TSH) 5.51 H 0.35-4.94 UIU/ML Free Thyroxine 1.00 0.70-1.48 NG/DL Glucometer 109 70-110 MG/DL Urine Color YELLOW Urine Clarity CLEAR Urine pH 7 5-9 Urine Specific [place] 1.010 L 1.016-1.022 Urine Protein 3+ H NEGATIVE Urine Glucose (UA) NEGATIVE NEGATIVE Urine Ketones 1+ H NEGATIVE Urine Nitrite NEGATIVE NEGATIVE Urine Bilirubin NEGATIVE NEGATIVE Urine Urobilinogen NORMAL NORMAL MG/DL Urine Leukocyte Esterase 3+ H NEGATIVE Urine RBC (Auto) 4+ H NEGATIVE Urine RBC 50-100 H /HPF Urine WBC >100 H /HPF Urine Squamous Epithelial Cells 2-5 /HPF Urine Renal Epithelial Cells 2-5 /HPF Urine Crystals NONE /LPF Urine Bacteria LARGE H /HPF Urine Casts NONE /LPF Urine Mucus NEGATIVE /LPF Urine Culture Indicated YES My Orders Orders - MATY FRANK MD Ns Iv 1000 Ml (Sodium Chloride 0.9%) (01/31/19 16:47) Thyroid Stimulating Hormone (01/31/19 17:36) Free T4 (Free Thyroxine) (01/31/19 17:36) Amlodipine Tablet (Norvasc Tablet) (01/31/19 19:30) Heart Healthy (01/31/19 Dinner) Aspirin Tablet (Aspirin Tablet) (01/31/19 19:45) Medications Given in ED Current Medications Medications Dose Ordered Sig/Toby Route Start Time Stop Time Status Last Admin Dose Admin Sodium Chloride 1,000 ml @ 0 mls/hr Q0M ONCE IV 01/31/19 16:47 01/31/19 16:48 DC 01/31/19 16:55 1,000 MLS/HR Vital Signs/I&O 01/31/19 01/31/19 01/31/19 15:47 20:00 20:13 Temp 98.0 97.6 Pulse 83 73 78 Resp 18 10 16 B/P (MAP) 185/94 (124) 159/95 (116) 143/83 (103) Pulse Ox 99 98 99 O2 Delivery Room Air Room Air Capillary Refill : Less Than 3 Seconds Blood Pressure Mean: 124 Point of Care Testing Finger Stick Blood Glucose: 109 Blood Glucose Action Taken: RN Notified Progress Note #1: Time: 17:09 Progress Note Patient was found to have significant expressive and receptive aphasia on arrival. NIH stroke score was at least 4. Several of the aspects of the NIH score were difficult to assess because of patient's inability to follow instructions secondary to receptive aphasia. CT of the head, CT perfusion study, and CT angiogram of the head and neck were all ordered. No acute bleed was seen on the CT head. Radiologist's interpretations of the CT studies are still pending. Patient's symptoms abruptly resolved after returning from the CT department. Patient was not given TPA because of multiple concerns. First, he had a recent rectal bleeding associated with an AVM that was clipped during colonoscopy on January 05. Second, there was question of subacute thalamic stroke on his CT performed January 27. These issues caused pause in administering TPA. Now that his symptoms have resolved, patient is definitely not a good TPA can didate. The stroke neurologist will be contacted as soon as imaging interpretations are reported. Patient has chronic kidney disease with creatinine greater than 2. A liter of IV normal saline was ordered to help with nephropathy prophylaxis. Progress Note #2: Progress Note Case was discussed with Dr. Lind. He recommends controlling blood pressure and completing stroke workup with cardiac monitoring, possibly with a 30 day outpatient monitor or an implanted loop recorder. Patient remained free of any further neurologic symptoms during his ER stay. Admission was felt appropriate to monitor kidney function, neuro status, cardiac rhythm, and blood pressure. After discussion with Dr. Sheldon and Dr. Friedman, he was given aspirin and amlodipine 5 mg orally in the ER. ECG Initial ECG Impression Date: Jan 31, 2019 Initial ECG Impression Time: 16:03 Initial ECG Rate: 84 Initial ECG Rhythm: Normal Sinus Initial ECG Intervals: Normal Initial ECG Impression: Normal Comment Normal sinus rhythm with no ST elevation or depression. Multiple PVCs. No abnormal intervals or axis deviation. Diagnostic Imaging Diagonstic Imaging: CT Plain Films/CT/US/NM/MRI: head Comments CT head viewed by me and report reviewed. See report below: NAME: HENRRY CORCORAN [facility] REC#: [id number] PT STATUS: REG ER : 1945 PHYSICIAN: JANETTE CAMPO APRN ADMIT DATE: 01/31/19/ER Draft Date of Exam:01/31/19 CT HEAD WO-R/O STROKE PROCEDURE: CT head wo r/o stroke. TECHNIQUE: Multiple contiguous axial images were obtained through the brain without the use of intravenous contrast. Auto Exposure Controls were utilized during the CT exam to meet ALARA standards for radiation dose reduction. INDICATION: Stroke. Confusion. COMPARISON: CT head without contrast from 01/28/2019. FINDINGS: Moderate generalized cerebral and cerebellar parenchymal volume loss. Moderate leukoaraiosis. No CT evidence of a territorial infarction. No intracranial hemorrhage, mass effect, hydrocephalus, or extra-axial fluid collections. Osseous structures are intact. The visualized paranasal sinuses and mastoids are clear. IMPRESSION: No acute intracranial CT findings. Dictated on workstation # [id number] Dict: 01/31/19 1700 Trans: 01/31/191703 [id number] Interpreted by: CATE SANTOS MD Diagonstic Imaging: Xray Plain Films/CT/US/NM/MRI: chest Comments Chest x-ray viewed by me and report reviewed. See report below: NAME: HENRRY CORCORAN [facility] REC#: [id number] PT STATUS: REG ER : 1945 PHYSICIAN: JANETTE ACMPO APRN ADMIT DATE: 01/31/19/ER Signed Date of Exam:01/31/19 CHEST 1 VIEW, AP/PA ONLY INDICATION: Stroke protocol. EXAMINATION: Frontal chest obtained at 4:54 PM. FINDINGS: There is cardiomegaly. There is no focal infiltrate, pneumothorax, or pleural fluid. IMPRESSION: Cardiomegaly with no acute process in the chest. Dictated by: Dictated on workstation # [id number] Dict: 01/31/191700 Trans: 01/31/19 [id number] Interpreted by: HENRRY SWENSON MD Electronically signed by: HENRRY SWENSON MD 01/31/191702 Diagonstic Imaging: CT Plain Films/CT/US/NM/MRI: other (CT perfusion of the head) Departure Communication (Admissions) Time/Spoke to Admitting Phy: 19:05 Dr. Sheldon Time/Spoke to Consulting Phy: 19:15 Dr. Friedman Impression Primary Impression: Aphasia Additional Impressions: Chronic kidney disease Qualified Codes: N18.9 - Chronic kidney disease, unspecified Hypertension Qualified Codes: I10 - Essential (primary) hypertension Disposition: ADMITTED INPATIENT Condition: Improved Admissions Decision to Admit Reason: Admit from ER (General) Decision to Admit/Date: Jan 31, 2019 Time/Decision to Admit Time: 19:05 Departure-Patient Inst. Referrals: KARLEE SHELDON DO (PCP/Family) Primary Care Physician MATY FRANK MD Jan 31, 2019 17:12
--- NOTE | 2019-01-31 17:33 | Diagnostic Imaging Report ---
EXAM: CT HEAD PERFUSION W/ CONTRAST INDICATION: Stroke like symptoms. COMPARISON: CT head without contrast 01/31/2019. FINDINGS: Normal venous and arterial peaks. There is marked transitional x-axis movement during the examination. There are matching regions of Tmax greater than 10 seconds and decreased CBF. Regions of Tmax greater than 4 seconds in the left frontal lobe deep white matter have no corresponding cerebral blood flow findings. These findings are below threshold. IMPRESSION: 1. Examination is limited by movement. 2. There are small regions of elevated Tmax without associated decreased cerebral blood flow in the left frontal lobe and cerebellum consistent with a mismatch volume measured to be 9 mL, but below threshold of 6 sec. 3. Matching abnormal perfusion and CBF in the right temporal lobe. These findings may be artifactual. Dictated by: Dictated on workstation # [id number]
--- NOTE | 2019-01-31 18:09 | Diagnostic Imaging Report ---
PROCEDURE: CT angiography of the head and CT angiography of the neck with and without contrast. TECHNIQUE: Contiguous noncontrast images were obtained from the skull base through the vertex. After intravenous contrast administration, helical CT angiography of the neck was performed. Source data was reformatted into multiple MIP projections. Delayed post contrast acquisition was also obtained. Auto Exposure Controls were utilized during the CT exam to meet ALARA standards for radiation dose reduction. INDICATION: Confusion. COMPARISON: Correlation is made with CT perfusion study. FINDINGS: There is a normal three-vessel branching pattern to the aortic arch. Both common carotid arteries appear to be widely patent. There is some calcified plaque at the carotid bifurcations bilaterally but no focal stenosis is seen. Both internal carotid arteries show some tortuosity but are patent. There is calcified plaque at the carotid siphons bilaterally. Normal perfusion within bilateral middle cerebral arteries is seen. No definite filling defect or thromboembolism is seen. Paired anterior cerebral arteries appear to be widely patent. Bilateral posterior cerebral arteries are patent. The basilar is patent. The vertebral arteries appear to be codominant and widely patent. IMPRESSION: Unremarkable CT angiogram of the head and neck. No thromboembolism or large branch occlusion is identified. Dictated by: Dictated on workstation # [id number]
--- NOTE | 2019-01-31 18:36 | NUR ---
PATIENT TO SELF CATH .
--- NOTE | 2019-01-31 18:48 | NUR ---
PATIENT UNABLE TO SELF CATH DECLINED TO LET STAFF.
--- NOTE | 2019-01-31 19:00 | NUR ---
ASSUMED CARE OF THIS PATIENT
--- NOTE | 2019-01-31 19:09 | NUR ---
REPORT TO ROBER
[2019-01-31] MEDS ORDERED: amLODIPine 5 MG (NORVASC) TAB PO ONE (19:30)
[2019-01-31] MEDS ORDERED: ASPIRIN 325 MG (5 GR) TABLET PO ONE (19:45)
[2019-01-31 19:53] LABS: BILIRUBIN,URINE NEGATIVE (NEGATIVE); CLARITY,URINE CLEAR; COLOR,URINE YELLOW; GLUCOSE, URINE (UA) NEGATIVE (NEGATIVE); KETONES,URINE 1+ (NEGATIVE); LEUKOCYTE ESTERASE ,URINE 3+ (NEGATIVE); NITRITE,URINE NEGATIVE (NEGATIVE); PH,URINE 7 (5-9); PROTEIN,URINE 3+ (NEGATIVE); UROBILINOGEN,URINE NORMAL (NORMAL)
[2019-01-31 20:07] LABS: BACTERIA,URINE LARGE /HPF; RBC,URINE 50-100 /HPF; WBC,URINE >100 /HPF
[2019-01-31] MEDS: NS IV 1000 ML 1,000 ML IV SCH (21:45)
[2019-02-01] VITALS (10 sets, daily range): BP systolic 138–157; BP diastolic 70–104
[2019-02-01] MEDS: ASPIRIN 325 MG (5 GR) TABLET PO SCH (07:54)
[2019-02-01] MEDS: NS IV 1000 ML 1,000 ML IV SCH ×2 (07:58→18:17)
--- NOTE | 2019-02-01 08:06 | Consultation-Cardiology ---
HPI-Cardiology Cardiology Consultation: Date of Consultation 02/01/19 Time Seen by a Provider: 07:40 Date of Admission Attending Physician Karlee Sheldon DO Admitting Physician Karlee Sheldon DO Consulting Physician MYESHA PERERA MD, MA, FACP, FACC, FSCAI, CCDS Physician requesting consult: Dr Sheldon HPI: Chief Complaint: Reason for consultation: Evaluate for the possibility of PAF HPI 74 yo man who has had two admissions: 01/27/19 and 01/31/19 with transient speech impairment, suggestive of TIA/CVA. Denies palp or syncope or shortness of breath or leg swelling or cp. Denies recent fever or chills. Chronically has somewhat poor balance. Notes mild malaise. No recent wgt loss/gain. Review of Systems-Cardiology Review of Systems Constitutional: As described under HPI Eyes: No vision change Ears/Nose/Throat: No ear discharge, No nasal drainage, No recent hearing loss Respiratory: As described under HPI Cardiovascular: As described under HPI Gastrointestinal: No diarrhea, No nausea, No vomiting Genitourinary: No dysuria, No hematuria, No urine frequency changes Musculoskeletal: As describe under HPI Skin: No rash, No ulcerations Psychiatric/Neurological: As described under HPI Hematologic: No bleeding abnormalities COS-Dvomlm-Ihgcpl Hx Patient Social History Alcohol Use: Denies Use Recreational Drug Use: No Type Used: Smokeless Tobacco Recent Foreign Travel: No Recent Infectious Disease Expo: No Hospitalization with Isolation: Denies Immunizations Up To Date Date of Pneumonia Vaccine: Aug 02, 2014 Date of Influenza Vaccine: Apr 29, 2017 Past Medical History PMH As described under Assessment. Family Medical History Family Medical History: Does not report fam h/o early CAD or SCD Allergies and Home Medications Allergies Coded Allergies: Penicillins (Verified Allergy, Unknown, HIVES, 01/27/19) Home Medications Acetaminophen 500 Mg Tablet, 1,000 MG PO Q6H PRN for PAIN-MILD, (Reported) Aspirin 81 Mg Tablet.dr, 81 MG PO DAILY Prescribed by: KARLEE SHELDON on 01/30/19 1244 Bisacodyl 10 Mg Supp.rect, 10 MG RC for CONSTIPATION-4TH LINE, (Reported) C,E,Zinc,Copper 11/Axcmp8r/Lut 1 Each Capsule, 1 CAP PO DAILY, (Reported) Cyanocobalamin (Vitamin B-12) 2,500 Mcg Tab.chew, 2,500 MCG PO HS, (Reported) Ferrous Sulfate 325 Mg Tablet, 325 MG PO DAILY, (Reported) Glimepiride 1 Mg Tablet, 1 MG PO BID, (Reported) Levothyroxine Sodium 75 Mcg Tablet, 75 MCG PO HS, (Reported) Metoprolol Succinate 100 Mg Tab.er.24h, 100 MG PO DAILY, (Reported) Multivitamin 1 Each Tablet, 1 TAB PO DAILY, (Reported) Nitrofurantoin Monohyd/M-Cryst 100 Mg Capsule, 100 MG PO DAILY, (Reported) Pantoprazole Sodium 40 Mg Tablet.dr, 40 MG PO DAILY, (Reported) Polyethylene Glycol 3350 119 Gm Powder, 17 GM PO DAILY PRN for CONSTIPATION-2ND LINE, (Reported) Simvastatin 10 Mg Tablet, 10 MG PO HS, (Reported) Patient Home Medication List Home Medication List Reviewed: Yes Physical Exam-Cardiology Physical Exam Vital Signs/I&O 01/31/19 01/31/19 01/31/19 01/31/19 20:00 20:13 20:13 20:30 Temp 98.0 97.6 Pulse 73 76 78 87 Resp 10 16 B/P (MAP) 159/95 (116) 143/83 (103) 152/119 (130) Pulse Ox 98 99 100 O2 Delivery Room Air Room Air 01/31/19 01/31/19 01/31/19 01/31/19 20:30 20:30 20:45 21:00 Temp 97.6 Pulse 76 73 66 Resp 16 B/P (MAP) 143/83 173/99 (123) 151/85 (107) Pulse Ox 100 99 98 100 O2 Delivery Room Air Room Air Room Air Room Air 01/31/19 01/31/19 01/31/19 01/31/19 21:00 21:30 21:45 22:00 Pulse 73 68 66 66 Resp 16 18 B/P (MAP) 173/99 (123) 141/84 (103) 145/83 (103) 155/86 (109) Pulse Ox 99 99 99 99 O2 Delivery Room Air Room Air Room Air Room Air 01/31/19 01/31/19 01/31/19 01/31/19 22:00 23:00 23:00 23:29 Temp 98.4 Pulse 66 65 65 Resp 18 B/P (MAP) 155/86 (109) 146/84 (104) 146/84 (104) Pulse Ox 99 99 O2 Delivery Room Air Room Air Room Air 02/01/19 02/01/19 02/01/19 02/01/19 00:00 00:00 00:00 01:00 Pulse 62 62 59 Resp 18 B/P (MAP) 157/83 (107) 157/83 (107) Pulse Ox 100 100 O2 Delivery Room Air Room Air Room Air 02/01/19 02/01/19 02/01/19 02/01/19 01:00 01:00 02:00 02:00 Pulse 59 59 58 58 Resp 18 18 B/P (MAP) 139/79 (99) 139/79 (99) 142/80 (100) 142/80 (100) Pulse Ox 100 100 O2 Delivery Room Air Room Air Room Air Room Air 02/01/19 02/01/19 02/01/19 02/01/19 03:00 03:51 04:00 04:00 Temp 97.8 Pulse 58 61 B/P (MAP) 144/84 (104) 140/85 (103) Pulse Ox 99 O2 Delivery Room Air Room Air Room Air 02/01/19 07:00 Pulse 72 02/01/19 00:00 Intake Total 1300 ml Balance 1300 ml Capillary Refill : Less Than 3 Seconds Constitutional: AAO x 3, well-developed, well-nourished HEENT: PERRL, hearing is well preserved; No xanthelasmas are seen Neck: carotid pulses are 2 + bilaterally, with good upstrokes Respiratory: No accessory muscle use; lungs clear to percussion, lungs clear to auscultation Cardiovascular: regular rate-rhythm, S1 and S2, systolic murmur (faint LAUREN at card base) Gastrointestinal: No tender; soft; No guarding, No rebound; audible bowel sounds Extremities: No clubbing, No cyanosis, No significant edema Neurologic/Psychiatric: oriented x 3, other (seems to move all limbs equally) Skin: No rash on exposed areas, No ulcerations on exposed areas Data Review Labs Laboratory Tests 01/31/19 15:49: White Blood Count 9.7, Red Blood Count 3.89L, Hemoglobin 11.7L, Hematocrit 35L, Mean Corpuscular Volume 90, Mean Corpuscular Hemoglobin 30, Mean Corpuscular Hemoglobin Concent 34, Red Cell Distribution Width 13.2, Platelet Count 329, Mean Platelet Volume 10.3, Neutrophils (%) (Auto) 61, Lymphocytes (%) (Auto) 28, Monocytes (%) (Auto) 8, Eosinophils (%) (Auto) 3, Basophils (%) (Auto) 1, Neutrophils # (Auto) 5.9, Lymphocytes # (Auto) 2.7, Monocytes # (Auto) 0.8, Eosinophils # (Auto) 0.2, Basophils # (Auto) 0.1, Prothrombin Time 14.7, INR Comment 1.1, Activated Partial Thromboplast Time 32, D-Dimer 0.65H, Sodium Level 139, Potassium Level 3.6, Chloride Level 105, Carbon Dioxide Level 24, Anion Gap 10, Blood Urea Nitrogen 25H, Creatinine 2.24H, Estimat Glomerular Filtration Rate 29, BUN/Creatinine Ratio 11, Glucose Level 88, Calcium Level 9.6, Corrected Calcium 9.3, Total Bilirubin 0.5, Aspartate Amino Transf (AST/SGOT) 29, Alanine Aminotransferase (ALT/SGPT) 39, Alkaline Phosphatase 71, Troponin I < 0.028, Total Protein 7.8, Albumin 4.4, Thyroid Stimulating Hormone (TSH) 5.51H, Free Thyroxine 1.00 01/31/19 16:57: Glucometer 109 01/31/19 19:32: Urine Color YELLOW, Urine Clarity CLEAR, Urine pH 7, Urine Specific [place] 1.010L, Urine Protein 3+H, Urine Glucose (UA) NEGATIVE, Urine Ketones 1+H, Urine Nitrite NEGATIVE, Urine Bilirubin NEGATIVE, Urine Urobilinogen NORMAL, Urine Leukocyte Esterase 3+H, Urine RBC (Auto) 4+H, Urine RBC 50-100H, Urine WBC >100H , Urine Squamous Epithelial Cells 2-5, Urine Renal Epithelial Cells 2-5, Urine Crystals NONE, Urine Bacteria LARGEH, Urine Casts NONE, Urine Mucus NEGATIVE, Urine Culture Indicated YES Laboratory Tests 01/31/19 15:49 A/P-Cardiology Assessment/Admission Diagnosis Ac kidney injury 3 (STEVIE 3) of undetermined etiology UTI Recurrent stroke-like symptoms (consider PAF). CT scan of 01/27/19 showed questionable subacute thalamic infarction Mild carotid arterial disease per carotid u/s of Jun 2018 Echo of December 2018 showed LVEF 45-50% with grade 1 diastolic dysfunction. Trivial AoR. PASP 40-[address] Israel Hypertension Hyperlipidemia, by history History of prostate cancer and hematuria and chronic daily use of straight catheter Discussion and Recomendations * ILR for eval for PAF. I discussed the rationale, procedure, risks, benefits, potential complications and alternatives with him. He understands and provides informed consent * Management of STEVIE and UTI and prostate CA is with Dr Sheldon * I reviewed his previous med recs * Monitor labs Clinical Quality Measures DVT/VTE Risk/Contraindication: Risk Factor Score Per Nursin RFS Level Per Nursing on Admit: 3=High MYESHA PERERA MD FACP FACC CCDS Feb 01, 2019 08:06
--- NOTE | 2019-02-01 08:44 | NUR ---
PATIENT WAS RECENTLY DISCHARGED, HE STATES NO CHANGES HAVE BEEN MADE SINCE THAT DISCHARGE. THE ONLY CHANGE MADE AT DISCHARGE WAS TO RESUME THE ASPIRIN WHICH HE STATES HE HAS DONE, HE HAS NOT RESTARTED THE DOXAZOSIN THAT HAD BEEN PUT ON HOLD PRIOR TO HIS LAST ADMISSION YET. REVIEWED MED REC IT WAS ORDERED UPON HIS LAST, RECENT DISCHARGE.
[2019-02-01] MEDS ORDERED: LIDOCAINE 1% INJ 20 ML 20 ML VIAL ONE (16:06)
--- NOTE | 2019-02-01 18:40 | History & Physicial ---
History of Present Illness History of Present Illness Reason for visit/HPI This is a 74 year old male who was recently admitted after a TIA from January 27- January 30. He was at home doing well but then had the sudden onset of speech difficulties so he was brought to the emergency room. He had expressive aphasia upon arrival in the emergency room, however, he was sent to CT scan and after his CT scan his speech returned to normal. There was no evidence of infarct or ischemia on either CT, CT perfusion study or CT angiogram. However, due to his repeat symptoms and elevated blood pressure, it was decided to admit him for further observation and neurochecks. Date of Admission Jan 31, 2019 at 19:29 Date Seen by a Provider: Feb 01, 2019 Time Seen by a Provider: 12:30 I consulted on this patient on 02/01/19 18:33 Attending Physician Macy Sheldon DO Admitting Physician Macy Sheldon DO Consult Allergies and Home Medications Allergies Coded Allergies: Penicillins (Verified Allergy, Unknown, HIVES, 01/27/19) Home Medications Acetaminophen 500 Mg Tablet, 1,000 MG PO Q6H PRN for PAIN-MILD, (Reported) Aspirin 81 Mg Tablet.dr, 81 MG PO DAILY Prescribed by: MACY SHELDON on 01/30/19 1244 Bisacodyl 10 Mg Supp.rect, 10 MG RC for CONSTIPATION-4TH LINE, (Reported) C,E,Zinc,Copper 11/Vpbxf6n/Lut 1 Each Capsule, 1 CAP PO DAILY, (Reported) Cyanocobalamin (Vitamin B-12) 2,500 Mcg Tab.chew, 2,500 MCG PO HS, (Reported) Ferrous Sulfate 325 Mg Tablet, 325 MG PO DAILY, (Reported) Glimepiride 1 Mg Tablet, 1 MG PO BID, (Reported) Levothyroxine Sodium 75 Mcg Tablet, 75 MCG PO HS, (Reported) Metoprolol Succinate 100 Mg Tab.er.24h, 100 MG PO DAILY, (Reported) Multivitamin 1 Each Tablet, 1 TAB PO DAILY, (Reported) Nitrofurantoin Monohyd/M-Cryst 100 Mg Capsule, 100 MG PO DAILY, (Reported) Pantoprazole Sodium 40 Mg Tablet.dr, 40 MG PO DAILY, (Reported) Polyethylene Glycol 3350 119 Gm Powder, 17 GM PO DAILY PRN for CONSTIPATION-2ND LINE, (Reported) Simvastatin 10 Mg Tablet, 10 MG PO HS, (Reported) Patient Home Medication List Home Medication List Reviewed: Yes Past Snrjpwf-Vdbrny-Ahqhir Hx Patient Social History Marrital Status: Alcohol Use: Denies Use Number of Drinks Today: AA Alcohol Beverage of Choice: Beer Recreational Drug Use: No Former Smoker, Quit: Nov 09, 1996 Type Used: Smokeless Tobacco Recent Foreign Travel: No Contact w/other who traveled: No Recent Hopitalizations: No Recent Infectious Disease Expo: No Immunizations Up To Date Date of Pneumonia Vaccine: Aug 02, 2014 Date of Influenza Vaccine: Apr 29, 2017 Seasonal Allergies Seasonal Allergies: Yes Surgeries Yes Bowel Surgery (colonic AVM clipping), Orthopedic, Vascular Surgery (colonic AVM clipping) Respiratory No Sleep Apnea Cardiovascular Yes Hypertension, Peripheral Vascular (colonic AVM) Neurological Yes TIA Genitourinary Yes (PROSTATE CANCER; SELF CATH'S SINCE 05/2018) Benign Prostatic Hyperpl, Kidney Infection, Prostate Problems, Bladder Infection, Renal Failure, UTI-Chronic Gastrointestinal Yes (AV MALFORMATION OF COLON) Gastrointestinal Bleed Musculoskeletal No Endocrine History of Endocrine Disorders: Yes Endocrine Disorders: Hypothyroidsim, Diabetes, Non-Insulin dep Cancer Yes Prostate Did You Recieve Any Treatments: Yes Type of Treatment: Radiation Psychosocial History of Psychiatric Problem: No Integumentary History of Skin or Integumenta: No Blood Transfusions History of Blood Disorders: Yes (IRON DEF ANEMIA) Review of Systems Constitutional: weakness EENTM: No see HPI, No no symptoms reported, No ear discharge, No hearing loss, No ear pain, No blurred vision, No double vision, No eye pain, No tearing, No vision loss, No dental problems, No hoarseness, No mouth pain, No mouth swelli ng, No epistaxis, No nose congestion, No nose pain, No throat pain, No throat swelling, No other Respiratory: No no symptoms reported, No see HPI, No cough, No dyspnea on exertion, No hemoptysis, No orthopnea, No phlegm, No short of breath, No stridor, No wheezing, No other Cardiovascular: No no symptoms reported, No see HPI, No chest pain, No edema, No Hx of Intervention, No palpitations, No syncope, No vascular heart diseas, No other Gastrointestinal: No RUQ, No LUQ, No RLQ, No LLQ, No no symptoms reported, No see HPI, No abdominal pain, No constipation, No diarrhea, No dysphagia, No hematemesis, No heartburn, No jaundice, No loss of appetite, No melena, No nausea, No vomiting, No other Genitourinary: hematuria (from recent traumatic cath) Musculoskeletal: No no symptoms reported, No see HPI, No back pain, No gout, No joint pain, No joint swelling, No muscle pain, No muscle stiffness, No muscle cramps, No muscle twitching, No muscle weakness, No neck pain, No other Skin: No no symptoms reported, No see HPI, No change in color, No change in hair/nails, No dryness, No hx of skin cancer, No lesions, No lumps, No pruritus, No rash, No other Psychiatric/Neurological: Other (speech difficulties) Physical Exam Vital Signs Vital Signs - First Documented 01/31/19 01/31/19 15:47 20:00 Temp 98.0 Pulse 83 Resp 18 B/P (MAP) 185/94 (124) Pulse Ox 99 O2 Delivery Room Air Capillary Refill : Less Than 3 Seconds Height, Weight, BMI Height: 5'10.00" Weight: 213lbs. 0.0oz. [id number]; 30.6 BMI Method:Stated General Appearance: No Apparent Distress HEENT: Normal ENT Inspection Neck: Supple Respiratory: Lungs Clear Cardiovascular: Regular Rate, Rhythm, Gallop/S4 Gastrointestinal: Normal Bowel Sounds, Non Tender, Soft Rectal: Deferred Extremity: Non Tender, No Calf Tenderness, No Pedal Edema Neurologic/Psychiatric: Alert, Oriented x3, No Motor/Sensory Deficits, Normal Mood/Affect Skin: Warm/Dry Comments Laboratory Tests 01/31/19 19:32: Urine Color YELLOW, Urine Clarity CLEAR, Urine pH 7, Urine Specific [place] 1.010L, Urine Protein 3+H, Urine Glucose (UA) NEGATIVE, Urine Ketones 1+H, Urine Nitrite NEGATIVE, Urine Bilirubin NEGATIVE, Urine Urobilinogen NORMAL, Urine Leukocyte Esterase 3+H, Urine RBC (Auto) 4+H, Urine RBC 50-100H, Urine WBC >100H , Urine Squamous Epithelial Cells 2-5, Urine Renal Epithelial Cells 2-5, Urine Crystals NONE, Urine Bacteria LARGEH, Urine Casts NONE, Urine Mucus NEGATIVE, Urine Culture Indicated YES Microbiology 01/31/19 Urine Culture - Preliminary, Resulted Culture In Progress Assessment/Plan Assessment and Plan 1. TIA--all symptoms resolved including normal speech and normal motor so no need for PT/OT or ST or rehab evaluations, aspirin 325mg po daily and has agreed to ILR to assess for possible PAF 2. Hypertension--BP stable after 1 dose of amlodopine 3. UTI--start rocephin and culture urine 4. Hematuria--from recent traumatic cath--improving 5. Chronic Renal Failure--hydrate and monitor Cr post contrast for CT 6. DMII--place on accuchecks with SSI Admission Diagnosis Admission Status: Observation Clinical Quality Measures DVT/VTE Risk/Contraindication: Risk Factor Score Per Nursin RFS Level Per Nursing on Admit: 3=High MACY SHELDON DO Feb 01, 2019 18:40
[2019-02-01] MEDS ORDERED: ACETAMINOPHEN 500 MG TAB (TYLENOL) PO PRN (18:45)
[2019-02-01] MEDS ORDERED: cefTRIAXone FOR IV USE 1,000 MG in WATER (STERILE) FOR INJECTION 10 ML IV SCH (19:00)
[2019-02-01] MEDS: inSUlin ASPART (NovoLOG) 1 UNIT/0.01 ML (CHARGE PER UNIT) SC SCH (20:54)
--- NOTE | 2019-02-01 20:58 | NUR ---
PT'S FINGERSTICK ACCUCHECK 233, REQUIRING 3 UNITS OF NOVOLOG PER SLIDING SCALE A. PT REFUSED NOVOLOG INSULIN AND STATED HE TAKES GLIMEPIRIDE 1 MG BY MOUTH TWICE A DAY. PT REQUEST THAT THIS RN CALL DR. COCHRAN TO GET THE GLIMEPIRIDE RESTARTED. THIS RN CALLED DR. COCHRAN ORDERS RECEIVED FOR GLIMEPIRIDE 1 MG PO BID. ORDERS READ BACK AND VERIFIED.
[2019-02-01] MEDS ORDERED: LEVOTHYROXINE 75 MCG (LEVOTHROID) TABLET PO SCH (21:00)
[2019-02-01] MEDS ORDERED: amLODIPine 5 MG (NORVASC) TAB PO SCH (21:00)
[2019-02-01] MEDS: GLIMEPIRIDE 1 MG (AMARYL) TAB PO SCH (22:00)
[2019-02-02] VITALS: BP 136/68
--- NOTE | 2019-02-02 03:06 | OPERATIVE REPORT ---
DATE OF SERVICE: 02/01/2019 PREOPERATIVE DIAGNOSIS: Recurrent transient ischemic attacks of undetermined etiology (atrial fibrillation suspected). POSTOPERATIVE DIAGNOSIS: Recurrent transient ischemic attacks of undetermined etiology (atrial fibrillation suspected). PROCEDURE: Implantable loop recorder implantation. DESCRIPTION OF PROCEDURE: The patient is a 74-year-old man who has had recurrent episodes of transient ischemic attack and atrial fibrillation is suspected, but has not been documented. Implantable loop recorder implantation was carried out today after having obtained an informed consent. The left prepectoral area was prepared and draped in the usual sterile fashion. Lidocaine 1% was used for local anesthesia. We used the tools provided with the [employer] LINQ device to make a subcutaneous pocket anterior to the fourth intercostal space on the left side into which the device was placed and the skin edges were closed using Dermabond and Steri-Strips. He tolerated the procedure well. Job ID: [id number] DocumentID: [id number] Dictated Date: 02/01/2019 21:47:35 [employer] Date: 02/02/2019 03:05:41 Dictated By: MYESHA PERERA MD, MA, FACP, FACC, MTDD
[2019-02-02 03:46] LABS: BASOPHILS # (AUTO) 0.1 10^3/uL (0.0-0.1); BASOPHILS % (AUTO) 1 % (0-10); EOSINOPHILS # (AUTO) 0.5 10^3/uL (0.0-0.3); EOSINOPHILS % (AUTO) 6 % (0-10); HEMATOCRIT 32 % (40-54); HEMOGLOBIN 10.4 G/DL (13.3-17.7); LYMPHOCYTES # (AUTO) 3.1 X 10^3 (1.0-4.0); LYMPHOCYTES % (AUTO) 32 % (12-44); MEAN CORPUSCULAR HEMOGLOBIN 30 PG (25-34); MEAN CORPUSCULAR HGB CONC 33 G/DL (32-36); MEAN CORPUSCULAR VOLUME 90 FL (80-99); MEAN PLATELET VOLUME 10.3 FL (7.4-10.4); MONOCYTES # (AUTO) 0.7 X 10^3 (0.0-1.0); MONOCYTES % (AUTO) 7 % (0-12); NEUTROPHILS # (AUTO) 5.2 X 10^3 (1.8-7.8); NEUTROPHILS % (AUTO) 55 % (42-75); PLATELET COUNT 318 10^3/uL (130-400); RED CELL DISTRIBUTION WIDTH 13.5 % (10.0-14.5); WHITE BLOOD COUNT 9.6 10^3/uL (4.3-11.0)
[2019-02-02 04:00] VITALS: BP 153/79
[2019-02-02 04:07] LABS: ALBUMIN 3.8 GM/DL (3.2-4.5); BILIRUBIN,TOTAL 0.3 MG/DL (0.1-1.0); CREATININE SERUM 1.88 MG/DL (0.60-1.30); POTASSIUM 3.5 MMOL/L (3.6-5.0); TOTAL PROTEIN 6.5 GM/DL (6.4-8.2)
[2019-02-02] MEDS: NS IV 1000 ML 1,000 ML IV SCH (04:21)
[2019-02-02] MEDS: inSUlin ASPART (NovoLOG) 1 UNIT/0.01 ML (CHARGE PER UNIT) SC SCH ×2 (06:31→11:15)
[2019-02-02] MEDS: ASPIRIN 325 MG (5 GR) TABLET PO SCH (08:15)
[2019-02-02] MEDS: GLIMEPIRIDE 1 MG (AMARYL) TAB PO SCH (08:15)
[2019-02-02] MEDS ORDERED: PANTOPRAZOLE 40 MG (PROTONIX) TAB PO SCH (09:00)
--- NOTE | 2019-02-02 10:57 | Progress Note-Cardiology ---
Cardiology SOAP Progress Note Subjective: No cp or palp or syncope or focal weakness or shortness of breath or discomfort at site of ILR implant Objective: I&O/Vital Signs 02/01/19 02/02/19 02/02/19 02/02/19 23:00 00:00 00:00 01:00 Pulse 63 60 61 B/P (MAP) 140/77 (98) 136/68 (90) Pulse Ox 96 O2 Delivery Room Air 02/02/19 02/02/19 02/02/19 02/02/19 03:39 04:00 04:00 07:00 Temp 98.3 Pulse 66 98 B/P (MAP) 153/79 (103) Pulse Ox 96 O2 Delivery Room Air 02/02/19 02/02/19 02/02/19 08:00 08:25 09:05 Temp 98.2 Pulse Ox 97 94 O2 Delivery Room Air Room Air 02/02/19 00:00 Intake Total 2594 ml Output Total 3125 ml Balance -531 ml Weight (Pounds): 211 Weight (Ounces): 8.0 Weight (Calculated Kilograms): 95.789369 Constitutional: AAO x 3, well-developed, well-nourished Respiratory: No accessory muscle use; lungs clear to percussion, lungs clear to auscultation Cardiovascular: regular rate-rhythm, S1 and S2, systolic murmur (faint LAUREN at card base) Gastrointestional: No tender; soft; No guarding, No rebound; audible bowel sounds Extremities: No clubbing, No cyanosis, No significant edema Neurologic/Psychiatric: oriented x 3, other (seems to move all limbs equally) Skin: No rash on exposed areas, No ulcerations on exposed areas Results/Procedures: Labs Laboratory Tests 02/01/19 20:46: Glucometer 233H 02/02/19 03:20: White Blood Count 9.6, Red Blood Count 3.51L, Hemoglobin 10.4L, Hematocrit 32L, Mean Corpuscular Volume 90, Mean Corpuscular Hemoglobin 30, Mean Corpuscular Hemoglobin Concent 33, Red Cell Distribution Width 13.5, Platelet Count 318, Mean Platelet Volume 10.3, Neutrophils (%) (Auto) 55, Lymphocytes (%) (Auto) 32, Monocytes (%) (Auto) 7, Eosinophils (%) (Auto) 6, Basophils (%) (Auto) 1, Neutrophils # (Auto) 5.2, Lymphocytes # (Auto) 3.1, Monocytes # (Auto) 0.7, Eosinophils # (Auto) 0.5H, Basophils # (Auto) 0.1, Sodium Level 142, Potassium Level 3.5L, Chloride Level 112H, Carbon Dioxide Level 19L, Anion Gap 11, Blood Urea Nitrogen 23H, Creatinine 1.88H, Estimat Glomerular Filtration Rate 35, BUN/Creatinine Ratio 12, Glucose Level 63L, Calcium Level 9.0, Corrected Calcium 9.2, Total Bilirubin 0.3, Aspartate Amino Transf (AST/SGOT) 22, Alanine Aminotransferase (ALT/SGPT) 32, Alkaline Phosphatase 67, Total Protein 6.5, Albumin 3.8 02/02/19 05:33: Glucometer 128H Microbiology 01/31/19 Urine Culture - Preliminary, Resulted NO GROWTH Laboratory Tests 01/31/19 15:49 02/02/19 03:20 A/P: Assessment: Ac kidney injury 3 (STEVIE 3) of undetermined etiology, managed by Dr Sheldon UTI, managed by Dr Wilder Recurrent stroke-like symptoms (consider PAF). CT scan of 01/27/19 showed questionable subacute thalamic infarction S/p ILR implantation on 02/01/19 to evaluate for possible PAF as the source of his TIAs Mild carotid arterial disease per carotid u/s of Jun 2018 Echo of December 2018 showed LVEF 45-50% with grade 1 diastolic dysfunction. Trivial AoR. PASP 40-[address] Israel Hypertension Hyperlipidemia, by history History of prostate cancer and hematuria and chronic daily use of straight catheter Plan: * Management of STEVIE and UTI and prostate CA is with Dr Sheldon * I explained the working of ILR to him and have advised cardiology f/u. His regular armature repairer is Dr Mccormack. He says he won't be able to see Dr Mccormack until next month. We have told him we can see him meanwhile at our office, if he so desires * Replenish K * Monitor labs MYES[facility] PERERA [facility] CCDS Feb 02, 2019 10:57
[2019-02-02] MEDS ORDERED: KCL 20 MEQ TAB (K-DUR) PO ONE (11:00)
--- NOTE | 2019-02-02 11:43 | Discharge Summary-Hospitalist ---
Diagnosis/Chief Complaint Date of Admission Jan 31, 2019 at 19:29 Date of Discharge Discharge Diagnosis Per PCP: 1. TIA--all symptoms resolved including normal speech and normal motor so no need for PT/OT or ST or rehab evaluations, aspirin 325mg po daily and has agreed to ILR to assess for possible PAF 2. Hypertension--BP stable after 1 dose of amlodopine 3. UTI--start rocephin and culture urine 4. Hematuria--from recent traumatic cath--improving 5. Chronic Renal Failure--hydrate and monitor Cr post contrast for CT 6. 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 (8) BPH (benign prostatic hyperplasia) Status: Chronic (9) History of urinary retention Status: Chronic (10) Chronic renal failure, stage 3 (moderate) Status: Chronic (11) Infarction of right thalamus Status: Chronic (12) Iron deficiency anemia Status: Chronic Discharge Summary Discharge Physical Exam Allergies: Coded Allergies: Penicillins (Verified Allergy, Unknown, HIVES, 01/27/19) Vitals & I&Os Vital Signs Date Time Temp Pulse Resp B/P (MAP) Pulse Ox O2 Delivery O2 Flow Rate FiO2 02/02/19 12:27 98 18 153/79 94 Room Air 02/02/19 08:00 98.2 General Appearance: No Apparent Distress, WD/WN Respiratory: Chest Non Tender, Lungs Clear, Normal Breath Sounds, No Accessory Muscle Use, No Respiratory Distress Cardiovascular: Regular Rate, Rhythm, No Edema, No Gallop, No JVD, No Murmur, Normal Peripheral Pulses Neurologic/Psychiatric: Alert, Oriented x3, No Motor/Sensory Deficits, Normal Mood/Affect Hospital Course Was the Problem List Reviewed?: Yes Hospital course: Patient had an uneventful short hospital course after he was admitted to the ER with slurred speech as he had presented last weekend when workup revealed evidence of stroke. By the time he obtained the workup all his symptoms were resolved. He had an implantable loop recorder placed yesterday is currently waiting to be discharged. He is upset about whoever ordered the insulin and does not want to be on insulin. Patient wondering if this is seizure that is causing all these symptoms but I recommended him to follow up with Dr. Sheldon for further workup. He was placed on amlodipine for hypertension and a full dose aspirin and those 2 were sent to [facility] pharmacy. He was deemed stable for discharge from cardiology and orders were placed. Labs (last 24 hrs) Laboratory Tests 02/01/19 20:46: Glucometer 233H 02/02/19 03:20: White Blood Count 9.6, Red Blood Count 3.51L, Hemoglobin 10.4L, Hematocrit 32L, Mean Corpuscular Volume 90, Mean Corpuscular Hemoglobin 30, Mean Corpuscular Hemoglobin Concent 33, Red Cell Distribution Width 13.5, Platelet Count 318, Mean Platelet Volume 10.3, Neutrophils (%) (Auto) 55, Lymphocytes (%) (Auto) 32, Monocytes (%) (Auto) 7, Eosinophils (%) (Auto) 6, Basophils (%) (Auto) 1, Neutr ophils # (Auto) 5.2, Lymphocytes # (Auto) 3.1, Monocytes # (Auto) 0.7, Eosinophils # (Auto) 0.5H, Basophils # (Auto) 0.1, Sodium Level 142, Potassium Level 3.5L, Chloride Level 112H, Carbon Dioxide Level 19L, Anion Gap 11, Blood Urea Nitrogen 23H, Creatinine 1.88H, Estimat Glomerular Filtration Rate 35, BUN/Creatinine Ratio 12, Glucose Level 63L, Calcium Level 9.0, Corrected Calcium 9.2, Total Bilirubin 0.3, Aspartate Amino Transf (AST/SGOT) 22, Alanine Aminotransferase (ALT/SGPT) 32, Alkaline Phosphatase 67, Total Protein 6.5, Albumin 3.8 02/02/19 05:33: Glucometer 128H 02/02/19 11:10: Glucometer 98 Microbiology 01/31/19 Urine Culture - Preliminary, Resulted NO GROWTH Patient resulted labs reviewed. Pending Labs Laboratory Tests 02/02/19 05:33: Glucometer 128 02/02/19 11:10: Glucometer 98 Discussion & Recommendations Discharge Planning: <30 minutes discharge planning Discharge Home Medications: Active Scripts Active Aspirin 325 Mg Tablet 325 Mg PO DAILY@0900 Amlodipine Besylate 5 Mg Tablet 5 Mg PO HS Reported Nitrofurantoin [place]-Mcr 100 mg (Nitrofurantoin Monohyd/M-Cryst) 100 Mg Capsule 100 Mg PO DAILY Acetaminophen 500 Mg Tablet 1,000 Mg PO Q6H PRN Ocuvite Adult 50 Plus Softgel (C,E,Zinc,Copper 11/Zjldq0p/Lut) 1 Each Capsule 1 Cap PO DAILY Clearlax (Polyethylene Glycol 3350) 119 Gm Powder 17 Gm PO DAILY PRN Dulcolax (Bisacodyl) 10 Mg Supp.rect 10 Mg RC PRN Pantoprazole Sodium 40 Mg Tablet.dr 40 Mg PO DAILY Vitamin B12 (Cyanocobalamin (Vitamin B-12)) 2,500 Mcg Tab.chew 2,500 Mcg PO HS Levothyroxine Sodium 75 Mcg Tablet 75 Mcg PO HS Multi-Vitamin Daily (Multivitamin) 1 Each Tablet 1 Tab PO DAILY Ferrous Sulfate 325 Mg Tablet 325 Mg PO DAILY Simvastatin 10 Mg Tablet 10 Mg PO HS Glimepiride 1 Mg Tablet 1 Mg PO BID Metoprolol Succinate 100 Mg Tab.er.24h 100 Mg PO DAILY Instructions to patient/family Please see electronic discharge instructions given to patient. Clinical Quality Measures DVT/VTE Risk/Contraindication: Risk Factor Score Per Nursin RFS Level Per Nursing on Admit: 3=High Problem Qualifiers (1) HTN (hypertension): Hypertension type: essential hypertension Qualified Codes: I10 - Essential (primary) hypertension (2) Diabetes mellitus: Diabetes mellitus type: type 2 Diabetes mellitus firm administrator insulin use: without care home use Diabetes mellitus complication status: with kidney complications Diabetes mellitus complication detail: with chronic kidney disease Chronic kidney disease stage: stage 3 (moderate) Qualified Codes: E11.22 - Type 2 diabetes mellitus with diabetic chronic kidney disease; N18.3 - Chronic kidney disease, stage 3 (moderate) (3) Hypothyroidism: Hypothyroidism type: acquired Qualified Codes: E03.9 - Hypothyroidism, unspecified (4) Anemia in chronic kidney disease: Chronic kidney disease stage: stage 3 (moderate) Qualified Codes: N18.3 - Chronic kidney disease, stage 3 (moderate); D63.1 - Anemia in chronic kidney disease (5) BPH (benign prostatic hyperplasia): Lower urinary tract symptom presence: symptoms present Lower urinary tract symptom detail: urinary frequency Qualified Codes: N40.1 - Benign prostatic hyperplasia with lower urinary tract symptoms; R35.0 - Frequency of micturition (6) Iron deficiency anemia: Iron deficiency anemia type: unspecified iron deficiency Qualified Codes: D50.9 - Iron deficiency anemia, unspecified TASIA MORALES DO Feb 02, 2019 11:43
[2019-02-02] MEDS ORDERED: ASPI-808 PO (11:45)
[2019-02-02] MEDS ORDERED: AMLO5TAB9 PO (11:45)
[2019-02-02 12:27] VITALS: BP 153/79
== END 2019-02-02 11:45 | disposition home or self-care (01) ==
LOC: EDUNIT# 15:47 → ER 15:49 → UNDOADMOB 19:29 → ICU 19:29 → UNDODISOB 02-02 12:25
PROVIDERS: ADMIT Family Medicine; ATTEND Family Medicine
DX: G45.9 Transient cerebral ischemic attack, unspecified (principal); R47.01 Aphasia; N17.9 Acute kidney failure, unspecified; N39.0 Urinary tract infection, site not specified; I12.9 Hypertensive chronic kidney disease with stage 1 through stage 4 chronic kidney disease, or unspecified chronic kidney disease; N18.3 Chronic kidney disease, stage 3 (moderate); D63.1 Anemia in chronic kidney disease; D50.9 Iron deficiency anemia, unspecified; E11.22 Type 2 diabetes mellitus with diabetic chronic kidney disease; E03.9 Hypothyroidism, unspecified; N40.1 Benign prostatic hyperplasia with lower urinary tract symptoms; R35.0 Frequency of micturition; Z85.46 Personal history of malignant neoplasm of prostate; Z87.891 Personal history of nicotine dependence; Z92.3 Personal history of irradiation
CPT/HCPCS: 0042T; 33285; 36415; 70450; 70496; 70498; 71045; 80053; 81000; 82962; 84439; 84443; 84484; 85025; 85379; 85610; 85730; 87088; 93005; 93041; 96360; 96361

== ENCOUNTER → 2020-01-16 | Outpatient (CLI) | payer MEDICARE, OTHER ==
[~2020-01-16] MED LIST changes: +AMLO5TAB9 PO; +ASPI-808 PO; -GLIM1TAB PO; +GLIM1TAB4 PO; -METO-395 PO; +MTP100TCR PO; +SIMV10TA26 PO; -SIMV10TA3 PO
--- NOTE | 2020-01-16 11:02 | Diagnostic Imaging Report ---
INDICATION: End-stage renal disease Bilateral renal sonography performed in a routine fashion. The right kidney measured 11.1 x 4.6 x 5.2 cm. Left kidney measured 11.8 x 4.7 x 7.6 cm. Both kidneys show some cortical thinning, right worse than left. There is no mass. There is marked hydronephrosis on both sides, left worse than right. Urinary bladder appears unremarkable, although the ureteral jets were not visualized. IMPRESSION: There is prominent hydronephrosis on both sides, left worse than right. There is some cortical thinning on both sides. There is no mass lesion. These findings represent worsening compared to 09/23/18. Dictated by: Dictated on workstation # [id number]
== END ==
LOC: RAD 09:58
PROVIDERS: ATTEND Internal Medicine
DX: N18.4 Chronic kidney disease, stage 4 (severe) (principal); N13.30 Unspecified hydronephrosis
CPT/HCPCS: 76770

== ENCOUNTER → 2020-05-03 | Outpatient (CLI) | payer MEDICARE, OTHER ==
[~2020-05-03] MED LIST changes: -PANT40TA3 PO; +PANT40TA52 PO; +POLY119P2 PO; -POLY119P4 PO
--- NOTE | 2020-05-03 10:49 | Diagnostic Imaging Report ---
INDICATION: Hydronephrosis Bilateral renal sonography performed in a routine fashion and compared to 01/16/2020. The right kidney measured 10.0 x 5.6 x 6.2 cm. The left kidney measured 12.4 x 4.5 x 5.7 cm. There was bilateral hydronephrosis which appears similar in severity compared to the previous study. There is no focal renal lesion. Urinary bladder shows wall thickening and irregularity. Calculated volume was 188 mL. Patient was unable to self catheterize and therefore postvoid images were not obtained. IMPRESSION: Bilateral hydronephrosis appears similar to the prior study of 01/16/2020. Urinary bladder shows diffuse wall thickening and irregularity. Dictated by: Dictated on workstation # [id number]
== END ==
LOC: RAD 10:00
PROVIDERS: ATTEND Specialist
DX: N13.30 Unspecified hydronephrosis (principal)
CPT/HCPCS: 76770

== ENCOUNTER 2022-09-12 17:14 | Emergency (ER) | payer MEDICARE, OTHER ==
[~2022-09-12] VITALS: Ht 177 cm; Wt 97.0 kg
[~2022-09-12 17:14] MED LIST changes: +AMLO-250 PO; +AMLO-251 PO; -AMLO10TA7 PO; -AMLO5TAB9 PO; -BENA40TA5 PO; +BENA40TA84 PO
[2022-09-12] MEDS ORDERED: TETANUS,DIPTH,PERTUSS P/F (BOOSTRIX) 0.5 ML VIAL IM ONE (17:45)
--- NOTE | 2022-09-12 17:45 | ED Fall/Injury ---
General Stated Complaint: LT HAND INJ | INJ AT HOME Source: patient Exam Limitations: no limitations History of Present Illness Date Seen by Provider: Sep 12, 2022 Time Seen by Provider: 17:28 Initial Comments 77-year-old female presents after a fall. States he tripped and fell on concrete. Denies dizziness prior to fall. Reports he hit his right knee, abrasion noted. States he was able to walk after the fall, reports mild pain in the knee. Also complains of left hand pain, presents with 2 skin tears, 1 to the left lateral wrist/forearm, and 1 to the left lateral hand. Bleeding controlled, nurse cleaning wounds during assessment. Nurse will place Steri- Strips. Denies hitting his head, no wounds noted to head. Patient is on Plavix. Patient unsure of tetanus status. Denies fever, chest pain, shortness of breath, abdominal pain. History includes hypertension, high cholesterol, history of stroke, history of prostate cancer. He has a loop recorder. Currently takes Plavix, metoprolol, amlodipine, Calcitrol, and cephalexin for prevention of urinary tract infections since he has to cath for urine due to scar tissue from prostate cancer. Occurred: just prior to arrival Severity: mild Injuries/Pain Location: upper extremity, lower extremity Context: tripped Loss of Consciousness: no loss of consciousness Associated Symptoms (Fall): Denies Symptoms Allergies and Home Medications Allergies Coded Allergies: Penicillins (Verified Allergy, Unknown, HIVES, 01/27/19) Patient Home Medication List Home Medication List Reviewed: Yes Acetaminophen (Acetaminophen) 500 Mg Tablet, 1,000 MG PO Q6H PRN for PAIN-MILD, (Reported) Entered as Reported by: BETTIE RODRIGUES on 01/30/19 0928 Amlodipine Besylate (Amlodipine Besylate) 5 Mg Tablet, 5 MG PO HS Prescribed by: TASIA MORALES on 02/02/19 1145 Aspirin (Aspirin) 325 Mg Tablet, 325 MG PO DAILY@0900 Prescribed by: TASIA MORALES on 02/02/19 1145 Bisacodyl (Dulcolax) 10 Mg Supp.rect, 10 MG RC for CONSTIPATION-4TH LINE, (Reported) Entered as Reported by: BETTIE RODRIGUES on 01/30/19 0856 C,E,Zinc,Copper 11/Adbni4e/Lut (Ocuvite Adult 50 Plus Softgel) 1 Each Capsule, 1 CAP PO DAILY, (Reported) Entered as Reported by: BETTIE RODRIGUES on 01/30/19 0928 Cyanocobalamin (Vitamin B-12) (Vitamin B12) 2,500 Mcg Tab.chew, 2,500 MCG PO HS, (Reported) Entered as Reported by: SHAVON ALEMAN on 11/09/17 1023 Ferrous Sulfate (Ferrous Sulfate) 325 Mg Tablet, 325 MG PO DAILY, (Reported) Entered as Reported by: MILTON JON on 05/13/15 0954 Glimepiride (Glimepiride) 1 Mg Tablet, 1 MG PO BID, (Reported) Entered as Reported by: MILTON JON on 05/13/15 09 Levothyroxine Sodium (Levothyroxine Sodium) 75 Mcg Tablet, 75 MCG PO HS, (Reported) Entered as Reported by: SHAVON ALEMAN on 11/09/17 1023 Metoprolol Succinate (Metoprolol Succinate) 100 Mg Tab.er.24h, 100 MG PO DAILY, (Reported) Entered as Reported by: MILTON JON on 05/13/15 09 Multivitamin (Multi-Vitamin Daily) 1 Each Tablet, 1 TAB PO DAILY, (Reported) Entered as Reported by: SHAVON ALEMAN on 11/09/17 1023 Nitrofurantoin Monohyd/M-Cryst (Nitrofurantoin [place]-Mcr 100 mg) 100 Mg Capsule, 100 MG PO DAILY, (Reported) Entered as Reported by: NADEGE VERDE on 01/30/19 1015 Pantoprazole Sodium (Pantoprazole Sodium) 40 Mg Tablet.dr, 40 MG PO DAILY, (Reported) Entered as Reported by: BETTIE RODRIGUES on 01/30/19 0856 Polyethylene Glycol 3350 (Clearlax) 119 Gm Powder, 17 GM PO DAILY PRN for CONSTIPATION-2ND LINE, (Reported) Entered as Reported by: BETTIE RODRIGUES on 01/30/19 0856 Simvastatin (Simvastatin) 10 Mg Tablet, 10 MG PO HS, (Reported) Entered as Reported by: MILTON JON on 05/13/15 09 Review of Systems Review of Systems Constitutional: see HPI Past Smzcvls-Nddowg-Ntcdgn Hx Seasonal Allergies Seasonal Allergies: Yes Past Medical History Surgeries: Yes Bowel Surgery, Orthopedic, Vascular Surgery Respiratory: No Cardiac: Yes Hypertension, Peripheral Vascular Neurological: Yes TIA Genitourinary: Yes (PROSTATE CANCER; SELF CATH'S SINCE 05/2018) Benign Prostatic Hyperpl, Kidney Infection, Prostate Problems, Bladder Infection, Renal Failure, UTI-Chronic Gastrointestinal: Yes (AV MALFORMATION OF COLON) Gastrointestinal Bleed Musculoskeletal: No Endocrine: Yes Hypothyroidsim, Diabetes, Non-Insulin dep Cancer: Yes Prostate Did You Recieve Any Treatments: Yes What Type of Treatment Did You: Radiation Psychosocial: No Integumentary: No Blood Disorders: Yes (IRON DEF ANEMIA) Physical Exam Vital Signs Vital Signs - First Documented 09/12/22 17:19 Temp 35.8 Pulse 78 Resp 18 B/P (MAP) 131/63 (85) Pulse Ox 97 O2 Delivery Room Air Capillary Refill : Height, Weight, BMI Height: 5'10.00" Weight: 211lbs. 8.0oz. 95.196636en; 30.6 BMI Method:Stated General Appearance: WD/WN, no apparent distress HEENT: PERRL/EOMI, normal ENT inspection, TMs normal Neck: supple, normal inspection Cardiovascular: regular rate, rhythm, no edema, no gallop, no JVD, no murmur Respiratory: lungs clear, normal breath sounds, no respiratory distress, no accessory muscle use Extremities: normal range of motion, other (1 skin tear to left lateral wrist/forearm, one skin tear to left lateral hand, hematoma noted to posterior left hand. Normal range of motion, sensation intact distally, cap refill less than 2 seconds. Abrasion to right knee, normal range of motion of knee.) Neurologic/Psychiatric: alert, normal mood/affect, oriented x 3 Skin: normal color, warm/dry Snow Coma Score Best Eye Response: (4) Open Spontaneously Best Verbal Response: (5) Oriented Best Motor Response: (6) Obeys Commands Progress/Results/Core Measures Results/Orders My Orders Orders - JORDIN ROGERS APRN Hand, Left, 3 Views (09/12/22 17:34) Dipht,Pertuss(Acell),Tet Adult (Boostrix (09/12/22 17:45) Medications Given in ED Current Medications Medications Dose Ordered Sig/Toby Route Start Time Stop Time Status Last Admin Dose Admin Diphtheria/ Tetanus/Acell Pertussis 0.5 ml ONCE ONCE IM 09/12/22 17:45 09/12/22 17:46 DC 09/12/22 17:52 0.5 ML Vital Signs/I&O 09/12/22 09/12/22 17:19 18:39 Temp 35.8 35.8 Pulse 78 70 Resp 18 18 B/P (MAP) 131/63 (85) 140/76 Pulse Ox 97 97 O2 Delivery Room Air Room Air Progress Progress Note #1: Time: 17:48 Progress Note Patient seen and evaluated, resting comfortably bed, no acute distress. Will order x-ray of the left hand. Wounds cleaned and dressed by nurse. Will update tetanus. Considered x-ray of the right knee, patient reporting mild pain, able to move knee, was able to walk after injury, normal range of motion, no obvious deformity. Considered CT of the head due to Plavix use. Deferred due to patient denying hitting his head, no head trauma noted, no forde sign, no loss of consciousness. Progress Note #2: Time: 18:25 Progress Note X-ray reviewed, no acute bony abnormality. Results discussed with patient and . Discharge instructions and return precautions provided. Diagnostic Imaging Diagonstic Imaging: Xray Plain Films/CT/US/NM/MRI: hand Comments [facility], [place] NAME: HENRRY CORCORAN [facility] REC#: [id number] PT STATUS: REG ER : 1945 PHYSICIAN: JORDIN ROGERS APRN ADMIT DATE: 09/12/22/ER Draft Date of Exam:09/12/22 HAND, LEFT, 3 VIEWS INDICATION: Hand pain. EXAMINATION: Three views were obtained. FINDINGS: The alignment is normal. There are mild degenerative changes. There is no fracture or dislocation. Soft tissues are unremarkable. IMPRESSION: Degenerative changes; however, no acute fracture or dislocation. Dictated on workstation # [id number] Dict: 09/12/221803 Trans: 09/12/221806 [facility] [phone] Interpreted by: CLEMENCIA SULLIVAN MD Electronically signed by: Departure Impression Primary Impression: Skin tear of left hand without complication Qualified Codes: S61.412A - Laceration without foreign body of left hand, initial encounter Additional Impressions: Abrasion of knee, right Qualified Codes: S80.211A - Abrasion, right knee, initial encounter Fall on same level Qualified Codes: W18.30XA - Fall on same level, unspecified, initial enc ounter Disposition: HOME, SELF-CARE Condition: Stable Departure-Patient Inst. Decision time for Depature: 18:27 Referrals: KARLEE COCHRAN DO (PCP/Family) Primary Care Physician Patient Instructions: Wound Care (DC) Add. Discharge Instructions: You may use triple antibiotic ointment to wounds. Keep Steri-Strips on until they begin to fall off, they will stay on for couple of days before they start to peel off. Once they peel off, you may place a bandage. Monitor for signs of infection, redness around wound, or red streaks up the arm, greenyellow, odorous drainage, swelling, or fevers. Return for signs of infection, uncontrolled pain, or any other new, concerning, worsening symptoms. Physical Exam Vital Signs Vital Signs - First Documented 09/12/22 17:19 Temp 35.8 Pulse 78 Resp 18 B/P (MAP) 131/63 (85) Pulse Ox 97 O2 Delivery Room Air Capillary Refill : Less Than 3 Seconds Height, Weight, BMI Height: 5'10.00" Weight: 211lbs. 8.0oz. 95.557617la; 30.00 BMI Method:Stated General Appearance: WD/WN, no apparent distress Knees: right knee non-tender, right knee normal range of motion, right knee other (superficial abrasion) JORDIN ROGERS APRN Sep 12, 2022 17:45
--- NOTE | 2022-09-12 18:08 | Diagnostic Imaging Report ---
INDICATION: Hand pain. EXAMINATION: Three views were obtained. FINDINGS: The alignment is normal. There are mild degenerative changes. There is no fracture or dislocation. Soft tissues are unremarkable. IMPRESSION: Degenerative changes; however, no acute fracture or dislocation. Dictated by: Dictated on workstation # [id number]
[2022-09-12 18:39] VITALS: BP 140/76
== END 2022-09-12 18:39 | disposition home or self-care (01) ==
LOC: EDUNIT# 17:14 → ER 17:16
DX: S61.412A Laceration without foreign body of left hand, initial encounter (principal); S80.211A Abrasion, right knee, initial encounter; I10 Essential (primary) hypertension; N39.0 Urinary tract infection, site not specified; Z23 Encounter for immunization; Z86.73 Personal history of transient ischemic attack (TIA), and cerebral infarction without residual deficits; Z79.02 Long term (current) use of antithrombotics/antiplatelets; Z79.52 Long term (current) use of systemic steroids; Z79.899 Other long term (current) drug therapy; W01.198A Fall on same level from slipping, tripping and stumbling with subsequent striking against other object, initial encounter; Y92.009 Unspecified place in unspecified non-institutional (private) residence as the place of occurrence of the external cause
CPT/HCPCS: 73130; 90715

== ENCOUNTER 2022-09-13 11:27 | Emergency (ER) | payer MEDICARE, OTHER ==
[~2022-09-13] VITALS: Ht 177 cm; Wt 97.0 kg
--- NOTE | 2022-09-13 11:52 | ED Integumentary General ---
General Chief Complaint: Upper Extremity Stated Complaint: HAND INJURY RIPPED OPEN AGAIN Nursing Triage Note: PT PRESENTS TO ED VIA POV FROM HOME WITH COMPLAINTS OF CONTINUED BLOODY DISCHARGE FROM L HAND LAC DESPITE BUTTERFLY STERI STRIPS BEING PLACED YESTERDAY WHILE IN ED. Source: patient, family Exam Limitations: no limitations History of Present Illness Date Seen by Provider: Sep 13, 2022 Time Seen by Provider: 11:37 Initial Comments Patient is a 77-year-old male who presents to the emergency department chief complaint increased bleeding from a skin tear to the left medial hand along the hypothenar eminence. Patient had a mechanical trip and fall yesterday with a skin tear in that area. Steri-Strips were placed. The patient states that the wound continued to bleed and he was afraid of taking off the bandage due to increased bleeding. He denies fevers or chills. The more proximal bandages still intact. He is requesting a dressing change and possibly Telfa as opposed to Steri-Strips to dress the wound. He denies any other complaints of pain, bleeding or injury or illness. Timing/Duration: this morning Severity: mild Location: hands (left) Associated Symptoms: denies symptoms Allergies and Home Medications Allergies Coded Allergies: Penicillins (Verified Allergy, Unknown, HIVES, 01/27/19) Patient Home Medication List Home Medication List Reviewed: Yes Acetaminophen (Acetaminophen) 500 Mg Tablet, 1,000 MG PO Q6H PRN for PAIN-MILD, (Reported) Entered as Reported by: BETTIE RODRIGUES on 01/30/19927 Amlodipine Besylate (Amlodipine Besylate) 5 Mg Tablet, 5 MG PO HS Prescribed by: TASIA MORALES on 02/02/19 1145 Aspirin (Aspirin) 325 Mg Tablet, 325 MG PO DAILY@0900 Prescribed by: TASIA MORALES on 02/02/19 1145 Bisacodyl (Dulcolax) 10 Mg Supp.rect, 10 MG RC for CONSTIPATION-4TH LINE, (Reported) Entered as Reported by: BETTIE RODRIGUES on 01/30/19 0856 C,E,Zinc,Copper 11/Kolhd8b/Lut (Ocuvite Adult 50 Plus Softgel) 1 Each Capsule, 1 CAP PO DAILY, (Reported) Entered as Reported by: BETTIE RODRIGUES on 01/30/19 0928 Cyanocobalamin (Vitamin B-12) (Vitamin B12) 2,500 Mcg Tab.chew, 2,500 MCG PO HS, (Reported) Entered as Reported by: SHAVON ALEMAN on 11/09/17 1023 Ferrous Sulfate (Ferrous Sulfate) 325 Mg Tablet, 325 MG PO DAILY, (Reported) Entered as Reported by: MILTON JON on 05/13/15 0954 Glimepiride (Glimepiride) 1 Mg Tablet, 1 MG PO BID, (Reported) Entered as Reported by: MILTON JON on 05/13/15 09 Levothyroxine Sodium (Levothyroxine Sodium) 75 Mcg Tablet, 75 MCG PO HS, (Rep orted) Entered as Reported by: SHAVON ALEMAN on 11/09/17 1023 Metoprolol Succinate (Metoprolol Succinate) 100 Mg Tab.er.24h, 100 MG PO DAILY, (Reported) Entered as Reported by: MILTON JON on 05/13/15 09 Multivitamin (Multi-Vitamin Daily) 1 Each Tablet, 1 TAB PO DAILY, (Reported) Entered as Reported by: SHAVON ALEMAN on 11/09/17 1023 Nitrofurantoin Monohyd/M-Cryst (Nitrofurantoin [place]-Mcr 100 mg) 100 Mg Capsule, 100 MG PO DAILY, (Reported) Entered as Reported by: NADEGE VERDE on 01/30/19 1015 Pantoprazole Sodium (Pantoprazole Sodium) 40 Mg Tablet.dr, 40 MG PO DAILY, (Reported) Entered as Reported by: BETTIE RODRIGUES on 01/30/19 0856 Polyethylene Glycol 3350 (Clearlax) 119 Gm Powder, 17 GM PO DAILY PRN for CONST IPATION-2ND LINE, (Reported) Entered as Reported by: BETTIE RODRIGUES on 01/30/19 0856 Simvastatin (Simvastatin) 10 Mg Tablet, 10 MG PO HS, (Reported) Entered as Reported by: MILTON JON on 05/13/15 09 Review of Systems Review of Systems Constitutional: see HPI Skin: other (bleeding from wound) Past Czicbtx-Qrzjai-Orofrv Hx Patient Social History Tobacco Use?: No Substance use?: No Alcohol Use?: Yes Alcohol type: Beer Alcohol Frequency: Daily Pt feels they are or have been: No Immunizations Up To Date First/Initial COVID19 Vaccinat: 2020 Second COVID19 Vaccination Theodore: 2020 Third COVID19 Vaccination Date: 2021 Seasonal Allergies Seasonal Allergies: Yes Past Medical History Surgery/Hospitalization HX: PMH; HTN AND HYPERLIPIDEMIA. SURGERY; LT THUMB REPAIR AND LOOP RECORDER PLACEMENT. Surgeries: Yes Bowel Surgery, Orthopedic, Vascular Surgery Respiratory: No Cardiac: Yes Hypertension, Peripheral Vascular Neurological: Yes TIA Genitourinary: Yes (PROSTATE CANCER; SELF CATH'S SINCE 05/2018) Benign Prostatic Hyperpl, Kidney Infection, Prostate Problems, Bladder Infection, Renal Failure, UTI-Chronic Gastrointestinal: Yes (AV MALFORMATION OF COLON) Gastrointestinal Bleed Musculoskeletal: No Endocrine: Yes Hypothyroidsim, Diabetes, Non-Insulin dep Cancer: Yes Prostate Did You Recieve Any Treatments: Yes What Type of Treatment Did You: Radiation Psychosocial: No Integumentary: No Blood Disorders: Yes (IRON DEF ANEMIA) Physical Exam Vital Signs Vital Signs - First Documented 09/13/22 11:38 Temp 35.9 Pulse 82 Resp 16 B/P (MAP) 137/75 (95) Pulse Ox 97 Capillary Refill : Less Than 3 Seconds General Appearance: WD/WN, no apparent distress Respiratory: no respiratory distress, no accessory muscle use Extremities: normal range of motion Neurologic/Psychiatric: alert, normal mood/affect, oriented x 3 Skin: other (2.5cm skin tear to left hypothenar eminence. The skin flap is white/avascular. No active bleeding. Tender to palpation. There is skin avulsion) Progress/Results/Core Measures Results/Orders Vital Signs/I&O 09/13/22 11:38 Temp 35.9 Pulse 82 Resp 16 B/P (MAP) 137/75 (95) Pulse Ox 97 Blood Pressure Mean: 95 Departure Impression Primary Impression: Wound disruption Qualified Codes: T81.30XD - Disruption of wound, unspecified, subsequent encounter Disposition: HOME, SELF-CARE Condition: Stable Departure-Patient Inst. Decision time for Depature: 12:09 Referrals: KARLEE SHELDON DO (PCP/Family) Primary Care Physician Patient Instructions: Wound Care ED Add. Discharge Instructions: Keep the skin tear sites clean dry and covered over the next couple of days. You may just put Neosporin over the wound once daily at night. Just a very thin layer. Wash gently with a mild soap and water daily. If you develop increasing redness, yellow/puslike drainage or fever please come back to the emergency room for reevaluation. Please follow-up with Dr. Sheldon in 1 week. Copy Copies To 1: KARLEE SHELDON KATHRYN M MD Sep 13, 2022 11:52
[2022-09-13 12:29] VITALS: BP 137/75
== END 2022-09-13 12:29 | disposition home or self-care (01) ==
LOC: EDUNIT# 11:27 → ER 11:28
DX: T81.30XA Disruption of wound, unspecified, initial encounter (principal)

== ENCOUNTER 2023-06-22 11:56 | Outpatient (RCR) | payer MEDICARE, OTHER ==
[2023-06-15 12:10] VITALS: BP 130/72
[2023-06-15] MEDS: FERRIC CARBOXYMALTOSE INJ 750 MG in NS (IVPB) 250 ML 250 ML IV SCH (12:32)
[2023-06-22] MEDS: FERRIC CARBOXYMALTOSE INJ 750 MG in NS (IVPB) 250 ML 250 ML IV SCH (12:31)
[2023-06-22 13:00] VITALS: BP 120/58
== END 2023-06-22 13:00 | disposition home or self-care (01) ==
LOC: SDC 11:56
PROVIDERS: ATTEND Family Medicine
DX: Z79.899 Other long term (current) drug therapy (principal)
CPT/HCPCS: 96365